=== PATIENT | female | born 1950 | race Caucasian/White ===

== ENCOUNTER → 2016-08-21 | Outpatient (REF) | payer MEDICARE, MEDICAID ==
[~2016-08-21] MED LIST: /ATOR40TA OR; ACTO45TA OR; ALTA10CA OR; ASPI325T PO; ASPI81TA45 OR; ATOR40TA PO; CALC600T7 PO; CARV25TA OR; CARV25TA PO; CIPR500T89 PO; CLAR5CHW OR; DIOV80TA OR; EXFORGE PO; FLEXERIL PO; FURO40TA2 PO; GABA300C3 PO; GLIM1TAB PO; IBUP600T26 PO; INSULANT SC; LANTUS INSULIN SC; LORA10TA2 PO; LORATIDINE PO; LOSA100T37 PO; NORV5TAB OR; OMEP40CA2 PO; PERC5TAB8 OR; PLAV75TA38 PO; PRIL20CA OR; TAB-TAB PO; TRAM50TA2 OR; TRAM50TA2 PO; VICO5TAB OR; VITA50003 PO; VITMTA PO; ZANA4TAB PO; ZOFR8TAB PO
== END ==
LOC: M LAB REF 13:07
PROVIDERS: ATTEND Emergency Medicine
DX: N39.0 Urinary tract infection, site not specified (principal)

== ENCOUNTER → 2016-09-04 | Outpatient (REF) | payer MEDICARE, MEDICAID | LOC: M LAB REF 12:46 | PROVIDERS: ATTEND Emergency Medicine | DX: N39.0 Urinary tract infection, site not specified (principal) ==

== ENCOUNTER → 2016-09-14 | Outpatient (REF) | payer MEDICARE, MEDICAID ==
[~2016-09-14] MED LIST changes: +GABA-282 PO; -GABA300C3 PO
[2016-09-14 15:03] LABS: WBC, URINE TNTC /hpf (0-3)
[2016-09-14 15:04] LABS: BACTERIA, URINE MOD AMOUNT; HYALINE CAST, URINE NONE SEEN /lpf (0-1); SQUAMOUS EPITHELIAL CELL URINE MOD AMOUNT /hpf (SMALL AMT); TRANSITIONAL EPI CELLS, URINE SMALL AMOUNT /hpf
[2016-09-14 15:05] LABS: MICROSCOPIC EXAM PERFORMED
== END ==
LOC: M SMT 14:00
PROVIDERS: ATTEND Specialist
DX: R30.0 Dysuria (principal)
CPT/HCPCS: 81015; 87088; 87186; G0463

== ENCOUNTER → 2016-11-26 | Outpatient (CLI) | payer MEDICARE, MEDICAID ==
[2016-11-26 13:07] LABS: ALBUMIN 3.3 GM/DL (3.2-5.2); ALBUMIN/GLOBULIN RATIO 0.83 (1.00-1.93); ALKALINE PHOSPHATASE 153 U/L (45-117); ALT/SGPT 19 U/L (12-78); ANION GAP 10 MEQ/L (8-16); AST/SGOT 13 U/L (15-37); BILIRUBIN,TOTAL 0.5 MG/DL (0.2-1.0); BLOOD UREA NITROGEN 28 MG/DL (7-18); CALCIUM LEVEL 9.3 MG/DL (8.8-10.2); CARBON DIOXIDE LEVEL 23 MEQ/L (21-32); CHLORIDE LEVEL 99 MEQ/L (98-107); CHOLESTEROL LEVEL 136 MG/DL (<200); CREATININE FOR GFR 1.18 MG/DL (0.55-1.02); GLOMERULAR FILTRATION RATE 48.6 (>45); GLUCOSE, FASTING 174 MG/DL (80-110); POTASSIUM SERUM 4.3 MEQ/L (3.5-5.1); SODIUM LEVEL 132 MEQ/L (136-145); TOTAL PROTEIN 7.3 GM/DL (6.4-8.2); TRIGLYCERIDES LEVEL 77 MG/DL (<150)
[2016-11-26 13:48] LABS: HEP C VIRUS AB SCREEN MEDICARE < 0.0 INDEX (<0.8)
== END ==
LOC: M SMT 07:53
PROVIDERS: ATTEND Emergency Medicine
DX: E11.42 Type 2 diabetes mellitus with diabetic polyneuropathy (principal); I10 Essential (primary) hypertension; E78.2 Mixed hyperlipidemia; E55.9 Vitamin D deficiency, unspecified; Z00.00 Encounter for general adult medical examination without abnormal findings
CPT/HCPCS: 36415; 80053; 80061; 82306; 83036; G0472

== ENCOUNTER 2017-04-18 09:48 | Emergency (ER) | payer MEDICARE, MEDICAID ==
[~2017-04-18] VITALS: Ht 167.6 cm; Wt 133.4 kg
[~2017-04-18 09:48] MED LIST changes: -ATOR40TA PO; +ATOR40TA75 PO; +CIPR-249 PO; -CIPR500T89 PO; +IBUP-1022 PO; -IBUP600T26 PO; -LOSA100T37 PO; +LOSA100T5 PO; +PLAV1TAB2 PO; -PLAV75TA38 PO; +VITA1CAP40 PO; -VITA50003 PO
[2017-04-18] MEDS ORDERED: VITA1CAP40 (10:07)
[2017-04-18] MEDS ORDERED: ASPI81TA85 PO (10:07)
[2017-04-18] MEDS ORDERED: OMEP40CA2 (10:07)
[2017-04-18] MEDS ORDERED: CALC600T6 (10:07)
[2017-04-18] MEDS ORDERED: OXYB5TAB10 (10:07)
[2017-04-18 11:00] LABS: BASO % 0.3 % (0.0-1.0); EOS % 0.4 % (0.0-3.0); IMMATURE GRANULOCYTE % 0.4 % (0-0); LYMPH # 1.1 10^3/uL (1.5-4.5); LYMPH % 9.8 % (24.0-44.0); MEAN CORPUSCULAR HEMOGLOBIN 30.9 pg (27.0-33.0); MEAN CORPUSCULAR VOLUME 90.8 fl (80.0-96.0); MONO # 0.2 10^3/uL (0.0-0.8); NEUTROPHILS # 9.9 10^3/uL (1.8-7.7); NEUTROPHILS % 87.1 % (36.0-66.0); PLATELET COUNT, AUTOMATED 319 10^3/uL (150-450); RED CELL DISTRIBUTION WIDTH 13.2 % (11.5-14.5); WHITE BLOOD COUNT 11.4 10^3/uL (4.0-10.0)
[2017-04-18 11:32] LABS: CALCIUM LEVEL 9.9 MG/DL (8.8-10.2); CREATININE FOR GFR 1.84 MG/DL (0.55-1.02); GLOMERULAR FILTRATION RATE 29.1 (>45); POTASSIUM SERUM 4.8 MEQ/L (3.5-5.1)
[2017-04-18] MEDS ORDERED: NS 500 ML IV ONE (12:00)
[2017-04-18 12:46] VITALS: BP 151/69
== END 2017-04-18 12:47 | disposition home or self-care (01) ==
LOC: EDBD 09:48 → M ED 09:48
DX: N28.9 Disorder of kidney and ureter, unspecified (principal); W06.XXXA Fall from bed, initial encounter; Y92.099 Unspecified place in other non-institutional residence as the place of occurrence of the external cause; Y93.89 Activity, other specified; Y99.9 Unspecified external cause status; I51.9 Heart disease, unspecified; I10 Essential (primary) hypertension; D64.9 Anemia, unspecified; Z87.440 Personal history of urinary (tract) infections; Z79.82 Long term (current) use of aspirin; Z79.4 Long term (current) use of insulin; Z79.899 Other long term (current) drug therapy; Z91.011 Allergy to milk products; Z91.041 Radiographic dye allergy status; Z88.2 Allergy status to sulfonamides

== ENCOUNTER 2018-01-20 23:58 | Inpatient (IN) | payer MEDICARE, MEDICAID ==
[2018-01-21 01:08] LABS: BASO % 0.1 % (0.0-1.0); HEMATOCRIT 32.1 % (36.0-47.0); HEMOGLOBIN 11.2 g/dl (12.0-15.5); IMMATURE GRANULOCYTE % 0.8 % (0-3.0); LYMPH # 0.7 10^3/uL (1.5-4.5); LYMPH % 3.5 % (24.0-44.0); MEAN CORPUSCULAR HEMOGLOBIN 30.9 pg (27.0-33.0); MEAN CORPUSCULAR HGB CONC 34.9 g/dl (32.0-36.5); MEAN CORPUSCULAR VOLUME 88.4 fl (80.0-96.0); MONO % 4.7 % (0.0-5.0); NEUTROPHILS # 18.5 10^3/uL (1.8-7.7); NEUTROPHILS % 90.9 % (36.0-66.0); PLATELET COUNT, AUTOMATED 292 10^3/uL (150-450); RED BLOOD COUNT 3.63 10^6/uL (4.00-5.40); RED CELL DISTRIBUTION WIDTH 12.8 % (11.5-14.5); WHITE BLOOD COUNT 20.4 10^3/uL (4.0-10.0)
[2018-01-21 01:09] LABS: VENOUS BASE EXCESS -4.3 (-2.0-2.0); VENOUS HCO3 22.4 MEQ/L (23.0-27.0); VENOUS O2 SATURATION 83.5 % (60.0-80.0); VENOUS PARTIAL PRESSURE CO2 47.6 mmHg (38.0-50.0); VENOUS STANDARD HCO3 20.6 MEQ/L; VENOUS TOTAL CO2 23.8 MEQ/L (24.0-28.0)
[2018-01-21 01:33] LABS: ANION GAP 15 MEQ/L (8-16); BLOOD UREA NITROGEN 45 MG/DL (7-18); CALCIUM LEVEL 8.8 MG/DL (8.8-10.2); CARBON DIOXIDE LEVEL 21 MEQ/L (21-32); CHLORIDE LEVEL 91 MEQ/L (98-107); CREATININE FOR GFR 2.48 MG/DL (0.55-1.30); GLOMERULAR FILTRATION RATE 20.6 (>45); GLUCOSE, FASTING 180 MG/DL (70-100); POTASSIUM SERUM 4.2 MEQ/L (3.5-5.1); SODIUM LEVEL 127 MEQ/L (136-145)
[2018-01-21 03:16] LABS: ABG BASE EXCESS -3.3 (-2.0-2.0); ABG HCO3 21.4 MEQ/L (22.0-26.0); ABG O2 SATURATION 94.1 % (95.0-99.0); ABG PARTIAL PRESSURE CO2 37.3 mmHg (35.0-45.0); ABG PARTIAL PRESSURE O2 73.1 mmHg (75.0-100.0); ABG STANDARD HCO3 21.7 MEQ/L (22.0-26.0); ABG TOTAL CO2 22.6 MEQ/L (23.0-31.0); ABG pH (ARTERIAL) 7.377 UNITS (7.350-7.450)
[2018-01-21] MEDS: NS 1,000 ML IV (03:45)
[2018-01-21] MEDS ORDERED: metroNIDAZOLE 500 MG in APPROPRIATE DILUENT 1 EA IV (04:00)
[2018-01-21] MEDS ORDERED: CIPROFLOXACIN 200 MG in APPROPRIATE DILUENT 1 EA IV (04:00)
[2018-01-21 04:04] LABS: KETONE, URINE AUTO RFX NEGATIVE (NEGATIVE); LEUKOCYTE ESTERASE UR AUTO RFX 3+ (NEGATIVE); MUCUS, URINE RFX SMALL (NEGATIVE); NITRITE, URINE AUTO RFX NEGATIVE (NEGATIVE); RBC, URINE AUTO RFX 8 /HPF (0-3); SPECIFIC GRAVITY UR AUTO RFX 1.006 (1.002-1.035); SQUAM EPITHELIAL CELL UR AURFX 0 /HPF (0-6); WBC, URINE AUTO RFX TNTC /HPF (0-3)
[2018-01-21 04:40] LABS: BEDSIDE GLUCOSE 201 MG/DL (80-115)
[2018-01-21 05:13] LABS: AMMONIA 19 uMOL/L (<32)
[2018-01-21 05:17] LABS: LACTIC ACID SEPSIS PROTOCOL 1.9 MMOL/L (0.4-2.0)
[2018-01-21] MEDS ORDERED: NS 1,000 ML IV (05:30)
[2018-01-21] MEDS ORDERED: D5W/0.45% SODIUM CHLORIDE 1,000 ML IV (05:32)
[2018-01-21] MEDS ORDERED: METOCLOPRAMIDE INJ 10MG/2ML VIAL (J2765) IV (05:45)
[2018-01-21] MEDS: NS 500 ML IV (05:45)
[2018-01-21] MEDS ORDERED: GLUCAGON FOR INJ 1 MG VIAL (J1610) SC (05:45)
[2018-01-21] MEDS: LEVEMIR (INSULIN DETEMIR) 1 UNITS/0.01ML SC ×2 (05:47→21:09)
[2018-01-21] MEDS ORDERED: HumaLOG INSULIN (NovoLOG) PER UNIT SC ×2 (06:00→07:30)
[2018-01-21] MEDS ORDERED: LevoFLOXacin IV 250 MG in APPROPRIATE DILUENT 1 EA IV (07:15)
[2018-01-21] MEDS: HumaLOG INSULIN (NovoLOG) PER UNIT SC ×4 (07:30→21:09)
[2018-01-21] MEDS ORDERED: cefTRIAXone SOD 1 GM in D5W MINI-BAG PLUS 50 ML IV (08:00)
[2018-01-21 08:39] LABS: BEDSIDE GLUCOSE 266 MG/DL (80-115)
[2018-01-21] MEDS: metroNIDAZOLE 500 MG in APPROPRIATE DILUENT 1 EA IV ×2 (09:05→17:31)
[2018-01-21] MEDS: OMEPRAZOLE 20 MG CAP PO (09:07)
[2018-01-21] MEDS: oxyBUTYnin 5 MG TAB PO ×3 (09:07→21:05)
[2018-01-21] MEDS: MULTIVITAMINS/MINERALS THERAP 1 TAB PO (09:07)
[2018-01-21] MEDS: ASPIRIN 81 MG ENTERIC TAB PO (09:08)
[2018-01-21] MEDS: GABAPENTIN 300 MG CAP PO ×2 (09:08→21:05)
[2018-01-21] MEDS: CALCIUM/VITAMIN D 500 MG TAB PO (09:08)
[2018-01-21] MEDS: HEPARIN SOD (PORCINE) 5000 UNITS/ML VIAL SC ×3 (09:08→21:10)
[2018-01-21] MEDS: LR 1,000 ML IV ×2 (09:09→13:20)
[2018-01-21] MEDS: LevoFLOXacin IV 750 MG in APPROPRIATE DILUENT 1 EA IV (09:10)
[2018-01-21] MEDS: CLOPIDOGREL 75 MG TAB PO (09:10)
[2018-01-21 09:21] LABS: VENOUS BASE EXCESS -6.2 (-2.0-2.0); VENOUS HCO3 20.8 MEQ/L (23.0-27.0); VENOUS O2 SATURATION 87.4 % (60.0-80.0); VENOUS PARTIAL PRESSURE O2 59.5 mmHg (30.0-50.0); VENOUS PH 7.263 UNITS (7.330-7.430); VENOUS STANDARD HCO3 19.2 MEQ/L; VENOUS TOTAL CO2 22.2 MEQ/L (24.0-28.0)
[2018-01-21 09:45] LABS: ANION GAP 14 MEQ/L (8-16); BLOOD UREA NITROGEN 42 MG/DL (7-18); CARBON DIOXIDE LEVEL 20 MEQ/L (21-32); CHLORIDE LEVEL 96 MEQ/L (98-107); CREATININE FOR GFR 2.07 MG/DL (0.55-1.30); GLOMERULAR FILTRATION RATE 25.4 (>45); GLUCOSE, FASTING 242 MG/DL (70-100); POTASSIUM SERUM 3.8 MEQ/L (3.5-5.1); SODIUM LEVEL 130 MEQ/L (136-145); TROPONIN I < 0.02 NG/ML (< 0.10)
[2018-01-21 12:06] LABS: BEDSIDE GLUCOSE 161 MG/DL (80-115)
[2018-01-21 14:31] LABS: ANION GAP 12 MEQ/L (8-16); BLOOD UREA NITROGEN 43 MG/DL (7-18); CALCIUM LEVEL 8.6 MG/DL (8.8-10.2); CARBON DIOXIDE LEVEL 25 MEQ/L (21-32); CHLORIDE LEVEL 93 MEQ/L (98-107); CREATININE FOR GFR 1.98 MG/DL (0.55-1.30); GLOMERULAR FILTRATION RATE 26.7 (>45); GLUCOSE, FASTING 55 MG/DL (70-100); POTASSIUM SERUM 3.5 MEQ/L (3.5-5.1); SODIUM LEVEL 130 MEQ/L (136-145)
[2018-01-21] MEDS: GLUCOSE 4 GM CHEW TABLET PO (15:33)
[2018-01-21 15:38] LABS: BEDSIDE GLUCOSE 26 MG/DL (80-115)
[2018-01-21] MEDS: D5W/0.9% SODIUM CHLORIDE 1,000 ML IV (15:39)
[2018-01-21] MEDS: POTASSIUM CHLORIDE 10 MEQ SR TABLET PO (15:43)
[2018-01-21] MEDS: DEXTROSE 50% 50 ML SYRINGE IV (15:50)
[2018-01-21 16:03] LABS: BEDSIDE GLUCOSE 38 MG/DL (80-115)
[2018-01-21 16:07] LABS: BEDSIDE GLUCOSE 130 MG/DL (80-115)
[2018-01-21 17:30] LABS: BEDSIDE GLUCOSE 112 MG/DL (80-115)
[2018-01-21 19:30] LABS: ANION GAP 10 MEQ/L (8-16); BLOOD UREA NITROGEN 43 MG/DL (7-18); CALCIUM LEVEL 8.5 MG/DL (8.8-10.2); CARBON DIOXIDE LEVEL 25 MEQ/L (21-32); CHLORIDE LEVEL 94 MEQ/L (98-107); CREATININE FOR GFR 1.77 MG/DL (0.55-1.30); GLOMERULAR FILTRATION RATE 30.4 (>45); GLUCOSE, FASTING 119 MG/DL (70-100); POTASSIUM SERUM 4.2 MEQ/L (3.5-5.1); SODIUM LEVEL 129 MEQ/L (136-145)
[2018-01-21] MEDS ORDERED: LEVEMIR (INSULIN DETEMIR) 1 UNITS/0.01ML SC ×2 (21:00)
[2018-01-22] MEDS: metroNIDAZOLE 500 MG in APPROPRIATE DILUENT 1 EA IV (00:41)
[2018-01-22 01:51] LABS: ANION GAP 10 MEQ/L (8-16); BLOOD UREA NITROGEN 41 MG/DL (7-18); CALCIUM LEVEL 8.6 MG/DL (8.8-10.2); CARBON DIOXIDE LEVEL 25 MEQ/L (21-32); CHLORIDE LEVEL 95 MEQ/L (98-107); GLOMERULAR FILTRATION RATE 29.8 (>45); GLUCOSE, FASTING 137 MG/DL (70-100); POTASSIUM SERUM 3.4 MEQ/L (3.5-5.1); SODIUM LEVEL 130 MEQ/L (136-145)
[2018-01-22] MEDS: D5W/0.9% SODIUM CHLORIDE 1,000 ML IV (05:53)
[2018-01-22] MEDS: VANCOMYCIN ORAL SOL 250MG/5ML ORAL SYRINGE PO ×3 (05:53→17:35)
[2018-01-22] MEDS: HEPARIN SOD (PORCINE) 5000 UNITS/ML VIAL SC ×3 (05:53→20:57)
[2018-01-22 06:34] LABS: HEMATOCRIT 27.4 % (36.0-47.0); HEMOGLOBIN 9.4 g/dl (12.0-15.5); MEAN CORPUSCULAR HEMOGLOBIN 30.6 pg (27.0-33.0); MEAN CORPUSCULAR HGB CONC 34.3 g/dl (32.0-36.5); MEAN CORPUSCULAR VOLUME 89.3 fl (80.0-96.0); PLATELET COUNT, AUTOMATED 238 10^3/uL (150-450); RED BLOOD COUNT 3.07 10^6/uL (4.00-5.40); RED CELL DISTRIBUTION WIDTH 12.7 % (11.5-14.5); WHITE BLOOD COUNT 13.9 10^3/uL (4.0-10.0)
[2018-01-22 06:52] LABS: ANION GAP 9 MEQ/L (8-16); BLOOD UREA NITROGEN 38 MG/DL (7-18); CALCIUM LEVEL 8.2 MG/DL (8.8-10.2); CARBON DIOXIDE LEVEL 24 MEQ/L (21-32); CHLORIDE LEVEL 97 MEQ/L (98-107); CREATININE FOR GFR 1.56 MG/DL (0.55-1.30); GLOMERULAR FILTRATION RATE 35.1 (>45); GLUCOSE, FASTING 112 MG/DL (70-100); MAGNESIUM LEVEL 1.6 MG/DL (1.8-2.4); POTASSIUM SERUM 3.5 MEQ/L (3.5-5.1); SODIUM LEVEL 130 MEQ/L (136-145)
[2018-01-22] MEDS: MAG SULF 1GM/100ML (MAG RUN) 1 GM in APPROPRIATE DILUENT 1 EA IV (08:11)
[2018-01-22] MEDS: HumaLOG INSULIN (NovoLOG) PER UNIT SC ×4 (08:12→20:14)
[2018-01-22] MEDS: OMEPRAZOLE 20 MG CAP PO (08:12)
[2018-01-22] MEDS: CALCIUM/VITAMIN D 500 MG TAB PO (08:13)
[2018-01-22] MEDS: MULTIVITAMINS/MINERALS THERAP 1 TAB PO (08:13)
[2018-01-22] MEDS: GABAPENTIN 300 MG CAP PO ×2 (08:13→20:57)
[2018-01-22] MEDS: ASPIRIN 81 MG ENTERIC TAB PO (08:13)
[2018-01-22] MEDS: CLOPIDOGREL 75 MG TAB PO (08:13)
[2018-01-22] MEDS: POTASSIUM CHLORIDE 10 MEQ SR TABLET PO (08:13)
[2018-01-22] MEDS: oxyBUTYnin 5 MG TAB PO ×3 (08:13→20:57)
[2018-01-22 09:14] LABS: ESTIMATED AVERAGE GLUCOSE 197 MG/DL (60-110); HEMOGLOBIN A1c 8.5 %
[2018-01-22 12:20] LABS: BEDSIDE GLUCOSE 132 MG/DL (80-115)
[2018-01-22 12:21] LABS: BEDSIDE GLUCOSE 137 MG/DL (80-115)
[2018-01-22 13:12] LABS: ANION GAP 8 MEQ/L (8-16); BLOOD UREA NITROGEN 33 MG/DL (7-18); CALCIUM LEVEL 8.4 MG/DL (8.8-10.2); CARBON DIOXIDE LEVEL 25 MEQ/L (21-32); CHLORIDE LEVEL 97 MEQ/L (98-107); CREATININE FOR GFR 1.39 MG/DL (0.55-1.30); GLOMERULAR FILTRATION RATE 40.1 (>45); GLUCOSE, FASTING 129 MG/DL (70-100); POTASSIUM SERUM 3.9 MEQ/L (3.5-5.1); SODIUM LEVEL 130 MEQ/L (136-145)
[2018-01-22] MEDS: LACTOBACILLUS ACIDOPHILUS CAP (BACID) PO ×2 (13:18→17:35)
[2018-01-22 19:39] LABS: ANION GAP 7 MEQ/L (8-16); BLOOD UREA NITROGEN 28 MG/DL (7-18); CALCIUM LEVEL 8.5 MG/DL (8.8-10.2); CARBON DIOXIDE LEVEL 25 MEQ/L (21-32); CHLORIDE LEVEL 98 MEQ/L (98-107); CREATININE FOR GFR 1.54 MG/DL (0.55-1.30); GLOMERULAR FILTRATION RATE 35.7 (>45); GLUCOSE, FASTING 198 MG/DL (70-100); POTASSIUM SERUM 3.9 MEQ/L (3.5-5.1); SODIUM LEVEL 130 MEQ/L (136-145)
[2018-01-22] MEDS: LEVEMIR (INSULIN DETEMIR) 1 UNITS/0.01ML SC (20:56)
[2018-01-22] MEDS: traMADol 50 MG TAB PO (20:57)
[2018-01-23] MEDS: VANCOMYCIN ORAL SOL 250MG/5ML ORAL SYRINGE PO ×5 (00:02→23:46)
[2018-01-23] MEDS: HEPARIN SOD (PORCINE) 5000 UNITS/ML VIAL SC ×3 (05:23→20:51)
[2018-01-23 05:55] LABS: HEMATOCRIT 28.8 % (36.0-47.0); HEMOGLOBIN 9.9 g/dl (12.0-15.5); MEAN CORPUSCULAR HEMOGLOBIN 30.6 pg (27.0-33.0); MEAN CORPUSCULAR HGB CONC 34.4 g/dl (32.0-36.5); MEAN CORPUSCULAR VOLUME 88.9 fl (80.0-96.0); PLATELET COUNT, AUTOMATED 255 10^3/uL (150-450); RED BLOOD COUNT 3.24 10^6/uL (4.00-5.40); RED CELL DISTRIBUTION WIDTH 12.7 % (11.5-14.5)
[2018-01-23] MEDS: traMADol 50 MG TAB PO ×2 (06:11→20:57)
[2018-01-23 06:13] LABS: ANION GAP 7 MEQ/L (8-16); BLOOD UREA NITROGEN 22 MG/DL (7-18); CALCIUM LEVEL 8.6 MG/DL (8.8-10.2); CARBON DIOXIDE LEVEL 23 MEQ/L (21-32); CHLORIDE LEVEL 99 MEQ/L (98-107); CREATININE FOR GFR 1.31 MG/DL (0.55-1.30); GLUCOSE, FASTING 165 MG/DL (70-100); MAGNESIUM LEVEL 1.7 MG/DL (1.8-2.4); POTASSIUM SERUM 4.3 MEQ/L (3.5-5.1); SODIUM LEVEL 129 MEQ/L (136-145)
[2018-01-23] MEDS ORDERED: MAG SULF 1GM/100ML (MAG RUN) 1 GM in APPROPRIATE DILUENT 1 EA IV (07:30)
[2018-01-23] MEDS: oxyBUTYnin 5 MG TAB PO ×3 (08:19→20:51)
[2018-01-23] MEDS: ASPIRIN 81 MG ENTERIC TAB PO (08:19)
[2018-01-23] MEDS: CALCIUM/VITAMIN D 500 MG TAB PO (08:19)
[2018-01-23] MEDS: OMEPRAZOLE 20 MG CAP PO (08:19)
[2018-01-23] MEDS: LACTOBACILLUS ACIDOPHILUS CAP (BACID) PO ×3 (08:19→17:34)
[2018-01-23] MEDS: GABAPENTIN 300 MG CAP PO ×2 (08:19→20:51)
[2018-01-23] MEDS: CLOPIDOGREL 75 MG TAB PO (08:19)
[2018-01-23] MEDS: HumaLOG INSULIN (NovoLOG) PER UNIT SC ×4 (08:20→20:52)
[2018-01-23] MEDS: LevoFLOXacin IV 750 MG in APPROPRIATE DILUENT 1 EA IV (09:44)
[2018-01-23] MEDS: MULTIVITAMINS/MINERALS THERAP 1 TAB PO (09:44)
[2018-01-23] MEDS ORDERED: tiZANidine 4 MG TAB PO (16:30)
[2018-01-23] MEDS: LOSARTAN 50 MG TAB PO (17:34)
[2018-01-23] MEDS: LEVEMIR (INSULIN DETEMIR) 1 UNITS/0.01ML SC (20:52)
[2018-01-24] MEDS: HEPARIN SOD (PORCINE) 5000 UNITS/ML VIAL SC (05:07)
[2018-01-24] MEDS: VANCOMYCIN ORAL SOL 250MG/5ML ORAL SYRINGE PO ×2 (05:07→12:05)
[2018-01-24 07:57] LABS: HEMATOCRIT 29.5 % (36.0-47.0); HEMOGLOBIN 10.4 g/dl (12.0-15.5); MEAN CORPUSCULAR HEMOGLOBIN 30.9 pg (27.0-33.0); MEAN CORPUSCULAR HGB CONC 35.3 g/dl (32.0-36.5); MEAN CORPUSCULAR VOLUME 87.5 fl (80.0-96.0); PLATELET COUNT, AUTOMATED 273 10^3/uL (150-450); RED BLOOD COUNT 3.37 10^6/uL (4.00-5.40); RED CELL DISTRIBUTION WIDTH 12.6 % (11.5-14.5)
[2018-01-24 08:19] LABS: ANION GAP 7 MEQ/L (8-16); BLOOD UREA NITROGEN 13 MG/DL (7-18); CALCIUM LEVEL 9.1 MG/DL (8.8-10.2); CARBON DIOXIDE LEVEL 25 MEQ/L (21-32); CHLORIDE LEVEL 99 MEQ/L (98-107); CREATININE FOR GFR 1.07 MG/DL (0.55-1.30); GLOMERULAR FILTRATION RATE 54.3 (>45); GLUCOSE, FASTING 171 MG/DL (70-100); MAGNESIUM LEVEL 1.8 MG/DL (1.8-2.4); POTASSIUM SERUM 4.5 MEQ/L (3.5-5.1); SODIUM LEVEL 131 MEQ/L (136-145)
[2018-01-24] MEDS: OMEPRAZOLE 20 MG CAP PO (08:37)
[2018-01-24] MEDS: MULTIVITAMINS/MINERALS THERAP 1 TAB PO (08:37)
[2018-01-24] MEDS: ASPIRIN 81 MG ENTERIC TAB PO (08:37)
[2018-01-24] MEDS: HumaLOG INSULIN (NovoLOG) PER UNIT SC ×2 (08:37→12:06)
[2018-01-24] MEDS: LACTOBACILLUS ACIDOPHILUS CAP (BACID) PO ×2 (08:37→12:06)
[2018-01-24] MEDS: CALCIUM/VITAMIN D 500 MG TAB PO (08:38)
[2018-01-24] MEDS: LOSARTAN 50 MG TAB PO (08:38)
[2018-01-24] MEDS: GABAPENTIN 300 MG CAP PO (08:38)
[2018-01-24] MEDS: CLOPIDOGREL 75 MG TAB PO (08:38)
[2018-01-24] MEDS: oxyBUTYnin 5 MG TAB PO (08:38)
[2018-01-25 12:11] LABS: BEDSIDE GLUCOSE 210 MG/DL (80-115)
[2018-01-25 12:11] LABS: BEDSIDE GLUCOSE 182 MG/DL (80-115)
[2018-01-25 12:11] LABS: BEDSIDE GLUCOSE 190 MG/DL (80-115)
[2018-01-25 12:11] LABS: BEDSIDE GLUCOSE 157 MG/DL (80-115)
[2018-01-25 12:11] LABS: BEDSIDE GLUCOSE 168 MG/DL (80-115)
[2018-01-25 12:11] LABS: BEDSIDE GLUCOSE 177 MG/DL (80-115)
[2018-01-25 12:11] LABS: BEDSIDE GLUCOSE 212 MG/DL (80-115)
== END 2018-01-24 12:59 | disposition home or self-care (01) | DRG 371 ==
LOC: M ED 23:58 → M ED INP 01-21 05:32 → M MSPAV 01-21 13:05
DX: A04.72 Enterocolitis due to Clostridium difficile, not specified as recurrent (principal); G93.41 Metabolic encephalopathy; K57.92 Diverticulitis of intestine, part unspecified, without perforation or abscess without bleeding; N17.9 Acute kidney failure, unspecified; Z68.42 Body mass index [BMI] 45.0-49.9, adult; N39.0 Urinary tract infection, site not specified; E87.1 Hypo-osmolality and hyponatremia; I13.0 Hypertensive heart and chronic kidney disease with heart failure and stage 1 through stage 4 chronic kidney disease, or unspecified chronic kidney disease; I50.9 Heart failure, unspecified; A04.0 Enteropathogenic Escherichia coli infection; E66.01 Morbid (severe) obesity due to excess calories; N18.9 Chronic kidney disease, unspecified; B96.20 Unspecified Escherichia coli [E. coli] as the cause of diseases classified elsewhere; I25.10 Atherosclerotic heart disease of native coronary artery without angina pectoris; R32 Unspecified urinary incontinence; E11.22 Type 2 diabetes mellitus with diabetic chronic kidney disease; K21.9 Gastro-esophageal reflux disease without esophagitis; M54.9 Dorsalgia, unspecified; Z79.82 Long term (current) use of aspirin; Z79.02 Long term (current) use of antithrombotics/antiplatelets; Z79.4 Long term (current) use of insulin; Z79.899 Other long term (current) drug therapy; Z88.2 Allergy status to sulfonamides; Z91.041 Radiographic dye allergy status; Z91.011 Allergy to milk products

== ENCOUNTER 2018-01-28 14:14 | Inpatient (IN) | payer MEDICARE, MEDICAID ==
[2018-01-28 14:41] LABS: BEDSIDE GLUCOSE 56 MG/DL (80-115)
[2018-01-28 15:27] LABS: BASO # 0.1 10^3/uL (0.0-0.2); BASO % 0.7 % (0.0-1.0); EOS # 0.2 10^3/uL (0.0-0.50); EOS % 3.2 % (0.0-3.0); HEMATOCRIT 32.5 % (36.0-47.0); IMMATURE GRANULOCYTE % 1.7 % (0-3.0); LYMPH # 1.3 10^3/uL (1.5-4.5); LYMPH % 17.9 % (24.0-44.0); MEAN CORPUSCULAR HGB CONC 33.8 g/dl (32.0-36.5); MEAN CORPUSCULAR VOLUME 91.5 fl (80.0-96.0); MONO # 0.7 10^3/uL (0.0-0.8); MONO % 9.5 % (0.0-5.0); NEUTROPHILS # 4.8 10^3/uL (1.8-7.7); PLATELET COUNT, AUTOMATED 321 10^3/uL (150-450); RED BLOOD COUNT 3.55 10^6/uL (4.00-5.40); RED CELL DISTRIBUTION WIDTH 12.9 % (11.5-14.5); WHITE BLOOD COUNT 7.2 10^3/uL (4.0-10.0)
[2018-01-28 15:50] LABS: BEDSIDE GLUCOSE 72 MG/DL (80-115)
[2018-01-28 15:57] LABS: ALBUMIN 3.3 GM/DL (3.2-5.2); ALBUMIN/GLOBULIN RATIO 0.85 (1.00-1.93); ALKALINE PHOSPHATASE 162 U/L (45-117); ALT/SGPT 72 U/L (12-78); ANION GAP 8 MEQ/L (8-16); AST/SGOT 78 U/L (7-37); BILIRUBIN,DIRECT 0.2 MG/DL (0.0-0.2); BILIRUBIN,TOTAL 0.4 MG/DL (0.2-1.0); BLOOD UREA NITROGEN 24 MG/DL (7-18); CALCIUM LEVEL 8.4 MG/DL (8.8-10.2); CARBON DIOXIDE LEVEL 26 MEQ/L (21-32); CHLORIDE LEVEL 94 MEQ/L (98-107); CK-MB VALUE MASS 5.3 NG/ML (<3.6); CPK CREATINE PHOSPHOKINASE 304 U/L (26-192); CREATININE FOR GFR 1.56 MG/DL (0.55-1.30); GLOMERULAR FILTRATION RATE 35.1 (>45); GLUCOSE, FASTING 46 MG/DL (70-100); LIPASE 72 U/L (73-393); MB/CK RELATIVE INDEX 1.74 (< OR =4); SODIUM LEVEL 128 MEQ/L (136-145); TOTAL PROTEIN 7.2 GM/DL (6.4-8.2); TROPONIN I < 0.02 NG/ML (< 0.10)
[2018-01-28 16:55] LABS: KETONE, URINE AUTO RFX NEGATIVE (NEGATIVE); NITRITE, URINE AUTO RFX NEGATIVE (NEGATIVE); RBC, URINE AUTO RFX 2 /HPF (0-3); SPECIFIC GRAVITY UR AUTO RFX 1.004 (1.002-1.035); SQUAM EPITHELIAL CELL UR AURFX 0 /HPF (0-6)
[2018-01-28 17:00] LABS: LEUKOCYTE ESTERASE UR AUTO RFX 2+ (NEGATIVE); WBC, URINE AUTO RFX 39 /HPF (0-3)
[2018-01-28 17:13] LABS: BEDSIDE GLUCOSE 61 MG/DL (80-115)
[2018-01-28] MEDS: D5W/0.45% SODIUM CHLORIDE 1,000 ML IV (17:46)
[2018-01-28 18:19] LABS: BEDSIDE GLUCOSE 60 MG/DL (80-115)
[2018-01-28 20:00] LABS: BEDSIDE GLUCOSE 122 MG/DL (80-115)
[2018-01-28] MEDS ORDERED: GLUCAGON FOR INJ 1 MG VIAL (J1610) SC (20:00)
[2018-01-28] MEDS ORDERED: GLUCOSE 4 GM CHEW TABLET PO (20:00)
[2018-01-28] MEDS ORDERED: DEXTROSE 50% 50 ML SYRINGE IV (20:00)
[2018-01-28] MEDS ORDERED: tiZANidine 4 MG TAB PO (20:00)
[2018-01-28] MEDS: D5W/0.9% SODIUM CHLORIDE 1,000 ML IV (20:25)
[2018-01-28 20:38] LABS: ESTIMATED AVERAGE GLUCOSE 206 MG/DL (60-110); HEMOGLOBIN A1c 8.8 %
[2018-01-28] MEDS: HumaLOG INSULIN (NovoLOG) PER UNIT SC (21:00)
[2018-01-28 21:06] LABS: ANION GAP 9 MEQ/L (8-16); BLOOD UREA NITROGEN 22 MG/DL (7-18); CALCIUM LEVEL 8.4 MG/DL (8.8-10.2); CARBON DIOXIDE LEVEL 27 MEQ/L (21-32); CHLORIDE LEVEL 95 MEQ/L (98-107); CREATININE FOR GFR 1.47 MG/DL (0.55-1.30); GLOMERULAR FILTRATION RATE 37.6 (>45); GLUCOSE, FASTING 97 MG/DL (70-100); POTASSIUM SERUM 4.3 MEQ/L (3.5-5.1); SODIUM LEVEL 131 MEQ/L (136-145)
[2018-01-28 21:11] LABS: CPK CREATINE PHOSPHOKINASE 247 U/L (26-192); MB/CK RELATIVE INDEX 2.02 (< OR =4); TROPONIN I < 0.02 NG/ML (< 0.10)
[2018-01-28 22:04] LABS: BEDSIDE GLUCOSE 92 MG/DL (80-115)
[2018-01-28] MEDS: DOCUSATE SODIUM 100 MG CAP PO (22:52)
[2018-01-28] MEDS: HEPARIN SOD (PORCINE) 5000 UNITS/ML VIAL SC (22:52)
[2018-01-28] MEDS: oxyBUTYnin 5 MG TAB PO (22:53)
[2018-01-28] MEDS: CARVedilol 12.5 MG TAB PO (22:55)
[2018-01-28] MEDS: GABAPENTIN 300 MG CAP PO (22:55)
[2018-01-28] MEDS: VANCOMYCIN ORAL SOL 250MG/5ML ORAL SYRINGE PO (23:39)
[2018-01-28 23:49] LABS: BEDSIDE GLUCOSE 103 MG/DL (80-115)
[2018-01-29 01:07] LABS: BEDSIDE GLUCOSE 83 MG/DL (80-115)
[2018-01-29 01:09] LABS: BEDSIDE GLUCOSE 88 MG/DL (80-115)
[2018-01-29] MEDS: traMADol 50 MG TAB PO ×2 (01:30→22:24)
[2018-01-29 01:54] LABS: BEDSIDE GLUCOSE 79 MG/DL (80-115)
[2018-01-29] MEDS: VANCOMYCIN ORAL SOL 250MG/5ML ORAL SYRINGE PO ×3 (05:16→17:47)
[2018-01-29] MEDS: D5W/0.9% SODIUM CHLORIDE 1,000 ML IV (05:16)
[2018-01-29 05:32] LABS: HEMATOCRIT 27.3 % (36.0-47.0); HEMOGLOBIN 9.4 g/dl (12.0-15.5); MEAN CORPUSCULAR HEMOGLOBIN 30.1 pg (27.0-33.0); MEAN CORPUSCULAR HGB CONC 34.4 g/dl (32.0-36.5); MEAN CORPUSCULAR VOLUME 87.5 fl (80.0-96.0); PLATELET COUNT, AUTOMATED 296 10^3/uL (150-450); RED BLOOD COUNT 3.12 10^6/uL (4.00-5.40); RED CELL DISTRIBUTION WIDTH 12.9 % (11.5-14.5); WHITE BLOOD COUNT 6.9 10^3/uL (4.0-10.0)
[2018-01-29 05:59] LABS: ALBUMIN 2.7 GM/DL (3.2-5.2); ALBUMIN/GLOBULIN RATIO 0.84 (1.00-1.93); ALKALINE PHOSPHATASE 108 U/L (45-117); ALT/SGPT 51 U/L (12-78); ANION GAP 9 MEQ/L (8-16); AST/SGOT 54 U/L (7-37); BILIRUBIN,TOTAL 0.3 MG/DL (0.2-1.0); BLOOD UREA NITROGEN 19 MG/DL (7-18); CALCIUM LEVEL 8.4 MG/DL (8.8-10.2); CARBON DIOXIDE LEVEL 27 MEQ/L (21-32); CHLORIDE LEVEL 98 MEQ/L (98-107); CPK CREATINE PHOSPHOKINASE 179 U/L (26-192); CREATININE FOR GFR 1.17 MG/DL (0.55-1.30); GLUCOSE, FASTING 66 MG/DL (70-100); MAGNESIUM LEVEL 1.6 MG/DL (1.8-2.4); POTASSIUM SERUM 3.9 MEQ/L (3.5-5.1); SODIUM LEVEL 134 MEQ/L (136-145); TOTAL PROTEIN 5.9 GM/DL (6.4-8.2); TROPONIN I < 0.02 NG/ML (< 0.10)
[2018-01-29 06:00] LABS: CK-MB VALUE MASS 2.9 NG/ML (<3.6); MB/CK RELATIVE INDEX 1.62 (< OR =4)
[2018-01-29 06:27] LABS: BEDSIDE GLUCOSE 67 MG/DL (80-115)
[2018-01-29] MEDS: ONDANSETRON 4MG/2ML VIAL (J2405) IV (07:11)
[2018-01-29] MEDS: HumaLOG INSULIN (NovoLOG) PER UNIT SC ×4 (07:30→21:00)
[2018-01-29 07:33] LABS: BEDSIDE GLUCOSE 87 MG/DL (80-115)
[2018-01-29 08:27] LABS: AMPHETAMINES LEVEL URINE NEGATIVE (NEGATIVE); BARBITURATES URINE NEGATIVE (NEGATIVE); BENZODIAZEPINES URINE NEGATIVE (NEGATIVE); CANNABINOIDS URINE NEGATIVE (NEGATIVE); COCAINE METABOLITE URINE NEGATIVE (NEGATIVE); CREATININE,RANDOM URINE 36.5 MG/DL; METHADONE URINE NEGATIVE (NEGATIVE); OPIATES URINE NEGATIVE (NEGATIVE); PHENCYCLIDINE URINE NEGATIVE (NEGATIVE); POTASSIUM RANDOM URINE 20.8 MEQ/L; SODIUM,RANDOM URINE 79 MEQ/L; TOTAL PROTEIN,RANDOM URINE 14.6 MG/DL (0.0-12.0)
[2018-01-29 08:41] LABS: BEDSIDE GLUCOSE 135 MG/DL (80-115)
[2018-01-29] MEDS: ATORVASTATIN 20 MG TAB PO (08:41)
[2018-01-29] MEDS: oxyBUTYnin 5 MG TAB PO ×3 (08:41→22:14)
[2018-01-29] MEDS: LACTOBACILLUS ACIDOPHILUS CAP (BACID) PO ×3 (08:42→17:30)
[2018-01-29] MEDS: FUROSEMIDE 40 MG TAB PO (08:42)
[2018-01-29] MEDS: LORATADINE 10 MG TAB PO (08:42)
[2018-01-29] MEDS: CLOPIDOGREL 75 MG TAB PO (08:42)
[2018-01-29] MEDS: GABAPENTIN 300 MG CAP PO ×2 (08:42→22:14)
[2018-01-29] MEDS: OMEPRAZOLE 20 MG CAP PO (08:42)
[2018-01-29] MEDS: CARVedilol 12.5 MG TAB PO ×2 (08:43→22:15)
[2018-01-29] MEDS: ASPIRIN 81 MG ENTERIC TAB PO (08:44)
[2018-01-29] MEDS: MULTIVITAMINS/MINERALS THERAP 1 TAB PO (08:44)
[2018-01-29] MEDS: MAGNESIUM OXIDE 400 MG TAB (MAG-OX) PO ×2 (08:44→22:14)
[2018-01-29] MEDS: HEPARIN SOD (PORCINE) 5000 UNITS/ML VIAL SC ×2 (08:45→22:24)
[2018-01-29] MEDS: DOCUSATE SODIUM 100 MG CAP PO ×2 (08:48→22:14)
[2018-01-29 09:42] LABS: OSMOLALITY URINE 293 MOSM/KG (500-800)
[2018-01-29 12:08] LABS: BEDSIDE GLUCOSE 142 MG/DL (80-115)
[2018-01-29 17:05] LABS: BEDSIDE GLUCOSE 168 MG/DL (80-115)
[2018-01-29 20:36] LABS: BEDSIDE GLUCOSE 164 MG/DL (80-115)
[2018-01-30] MEDS: VANCOMYCIN ORAL SOL 250MG/5ML ORAL SYRINGE PO ×5 (00:07→23:14)
[2018-01-30 06:14] LABS: HEMATOCRIT 27.3 % (36.0-47.0); HEMOGLOBIN 9.4 g/dl (12.0-15.5); MEAN CORPUSCULAR HEMOGLOBIN 30.9 pg (27.0-33.0); MEAN CORPUSCULAR HGB CONC 34.4 g/dl (32.0-36.5); MEAN CORPUSCULAR VOLUME 89.8 fl (80.0-96.0); PLATELET COUNT, AUTOMATED 285 10^3/uL (150-450); RED BLOOD COUNT 3.04 10^6/uL (4.00-5.40); RED CELL DISTRIBUTION WIDTH 13.1 % (11.5-14.5); WHITE BLOOD COUNT 5.3 10^3/uL (4.0-10.0)
[2018-01-30 06:32] LABS: ALBUMIN 2.6 GM/DL (3.2-5.2); ALBUMIN/GLOBULIN RATIO 0.68 (1.00-1.93); ALKALINE PHOSPHATASE 115 U/L (45-117); ALT/SGPT 42 U/L (12-78); ANION GAP 5 MEQ/L (8-16); AST/SGOT 41 U/L (7-37); BILIRUBIN,TOTAL 0.4 MG/DL (0.2-1.0); BLOOD UREA NITROGEN 16 MG/DL (7-18); CALCIUM LEVEL 8.4 MG/DL (8.8-10.2); CARBON DIOXIDE LEVEL 29 MEQ/L (21-32); CHLORIDE LEVEL 97 MEQ/L (98-107); GLOMERULAR FILTRATION RATE 52.6 (>45); GLUCOSE, FASTING 145 MG/DL (70-100); MAGNESIUM LEVEL 1.7 MG/DL (1.8-2.4); POTASSIUM SERUM 4.1 MEQ/L (3.5-5.1); SODIUM LEVEL 131 MEQ/L (136-145); TOTAL PROTEIN 6.4 GM/DL (6.4-8.2)
[2018-01-30] MEDS: DOCUSATE SODIUM 100 MG CAP PO ×2 (09:00→22:03)
[2018-01-30] MEDS: ASPIRIN 81 MG ENTERIC TAB PO (09:27)
[2018-01-30] MEDS: GABAPENTIN 300 MG CAP PO ×2 (09:27→22:03)
[2018-01-30] MEDS: oxyBUTYnin 5 MG TAB PO ×3 (09:27→22:03)
[2018-01-30] MEDS: LORATADINE 10 MG TAB PO (09:27)
[2018-01-30] MEDS: FUROSEMIDE 40 MG TAB PO (09:27)
[2018-01-30] MEDS: MULTIVITAMINS/MINERALS THERAP 1 TAB PO (09:27)
[2018-01-30] MEDS: MAGNESIUM OXIDE 400 MG TAB (MAG-OX) PO ×2 (09:28→22:03)
[2018-01-30] MEDS: LACTOBACILLUS ACIDOPHILUS CAP (BACID) PO ×3 (09:28→17:02)
[2018-01-30] MEDS: OMEPRAZOLE 20 MG CAP PO (09:28)
[2018-01-30] MEDS: CARVedilol 12.5 MG TAB PO ×2 (09:29→22:04)
[2018-01-30] MEDS: CLOPIDOGREL 75 MG TAB PO (09:29)
[2018-01-30] MEDS: HumaLOG INSULIN (NovoLOG) PER UNIT SC ×4 (09:29→21:00)
[2018-01-30] MEDS: ATORVASTATIN 20 MG TAB PO (09:29)
[2018-01-30] MEDS: HEPARIN SOD (PORCINE) 5000 UNITS/ML VIAL SC ×2 (09:30→22:03)
[2018-01-30 11:42] LABS: BEDSIDE GLUCOSE 177 MG/DL (80-115)
[2018-01-30 16:29] LABS: BEDSIDE GLUCOSE 181 MG/DL (80-115)
[2018-01-30 21:11] LABS: BEDSIDE GLUCOSE 204 MG/DL (80-115)
[2018-01-30] MEDS: traMADol 50 MG TAB PO (22:05)
[2018-01-31] MEDS: traMADol 50 MG TAB PO (04:31)
[2018-01-31] MEDS: VANCOMYCIN ORAL SOL 250MG/5ML ORAL SYRINGE PO (05:04)
[2018-01-31 05:49] LABS: HEMATOCRIT 27.9 % (36.0-47.0); HEMOGLOBIN 9.6 g/dl (12.0-15.5); MEAN CORPUSCULAR HEMOGLOBIN 30.6 pg (27.0-33.0); MEAN CORPUSCULAR HGB CONC 34.4 g/dl (32.0-36.5); MEAN CORPUSCULAR VOLUME 88.9 fl (80.0-96.0); PLATELET COUNT, AUTOMATED 288 10^3/uL (150-450); RED BLOOD COUNT 3.14 10^6/uL (4.00-5.40); RED CELL DISTRIBUTION WIDTH 13.1 % (11.5-14.5); WHITE BLOOD COUNT 5.4 10^3/uL (4.0-10.0)
[2018-01-31 06:10] LABS: ALBUMIN 2.7 GM/DL (3.2-5.2); ALBUMIN/GLOBULIN RATIO 0.71 (1.00-1.93); ALKALINE PHOSPHATASE 121 U/L (45-117); ALT/SGPT 38 U/L (12-78); ANION GAP 9 MEQ/L (8-16); AST/SGOT 33 U/L (7-37); BILIRUBIN,TOTAL 0.5 MG/DL (0.2-1.0); BLOOD UREA NITROGEN 15 MG/DL (7-18); CALCIUM LEVEL 8.6 MG/DL (8.8-10.2); CARBON DIOXIDE LEVEL 26 MEQ/L (21-32); CHLORIDE LEVEL 92 MEQ/L (98-107); CREATININE FOR GFR 0.95 MG/DL (0.55-1.30); GLOMERULAR FILTRATION RATE > 60.0 (>45); GLUCOSE, FASTING 189 MG/DL (70-100); MAGNESIUM LEVEL 1.7 MG/DL (1.8-2.4); SODIUM LEVEL 127 MEQ/L (136-145); TOTAL PROTEIN 6.5 GM/DL (6.4-8.2)
[2018-01-31] MEDS: ACETAMINOPHEN TAB 650MG DOSE (2X325MG) PO (07:43)
[2018-01-31] MEDS: LACTOBACILLUS ACIDOPHILUS CAP (BACID) PO (07:44)
[2018-01-31] MEDS: oxyBUTYnin 5 MG TAB PO (07:44)
[2018-01-31] MEDS: ATORVASTATIN 20 MG TAB PO (07:44)
[2018-01-31] MEDS: GABAPENTIN 300 MG CAP PO (07:44)
[2018-01-31] MEDS: LORATADINE 10 MG TAB PO (07:45)
[2018-01-31] MEDS: CARVedilol 12.5 MG TAB PO (07:45)
[2018-01-31] MEDS: ASPIRIN 81 MG ENTERIC TAB PO (07:45)
[2018-01-31] MEDS: FUROSEMIDE 40 MG TAB PO (07:46)
[2018-01-31] MEDS: OMEPRAZOLE 20 MG CAP PO (07:46)
[2018-01-31] MEDS: MULTIVITAMINS/MINERALS THERAP 1 TAB PO (07:46)
[2018-01-31] MEDS: CLOPIDOGREL 75 MG TAB PO (07:46)
[2018-01-31] MEDS: HEPARIN SOD (PORCINE) 5000 UNITS/ML VIAL SC (07:47)
[2018-01-31] MEDS: HumaLOG INSULIN (NovoLOG) PER UNIT SC (07:47)
[2018-01-31] MEDS: DOCUSATE SODIUM 100 MG CAP PO (07:48)
== END 2018-01-31 12:05 | disposition home health service (06) | DRG 918 ==
LOC: M MSPAV 01-29 16:10 → M ED 14:14 → M ED INP 19:48 → M ICU 21:55
PROVIDERS: Hospitalist
DX: T38.3X1A Poisoning by insulin and oral hypoglycemic [antidiabetic] drugs, accidental (unintentional), initial encounter (principal); E87.1 Hypo-osmolality and hyponatremia; Z68.43 Body mass index [BMI] 50.0-59.9, adult; I50.22 Chronic systolic (congestive) heart failure; E66.01 Morbid (severe) obesity due to excess calories; E11.649 Type 2 diabetes mellitus with hypoglycemia without coma; I25.10 Atherosclerotic heart disease of native coronary artery without angina pectoris; K21.9 Gastro-esophageal reflux disease without esophagitis; M54.5 Low back pain; Z79.4 Long term (current) use of insulin; Z79.899 Other long term (current) drug therapy; Z79.82 Long term (current) use of aspirin; Z88.2 Allergy status to sulfonamides; Z91.041 Radiographic dye allergy status; Z91.011 Allergy to milk products; G62.9 Polyneuropathy, unspecified

== ENCOUNTER 2018-02-26 14:20 | Inpatient (IN) | payer MEDICARE, MEDICAID ==
[2018-02-26 17:34] LABS: HEMATOCRIT 34.5 % (36.0-47.0); HEMOGLOBIN 11.9 g/dl (12.0-15.5); MEAN CORPUSCULAR HGB CONC 34.5 g/dl (32.0-36.5); MEAN CORPUSCULAR VOLUME 89.8 fl (80.0-96.0); PLATELET COUNT, AUTOMATED 274 10^3/uL (150-450); RED BLOOD COUNT 3.84 10^6/uL (4.00-5.40); RED CELL DISTRIBUTION WIDTH 13.1 % (11.5-14.5); WHITE BLOOD COUNT 11.7 10^3/uL (4.0-10.0)
[2018-02-26 17:35] LABS: BEDSIDE GLUCOSE 407 MG/DL (80-115)
[2018-02-26 17:55] LABS: ANION GAP 11 MEQ/L (8-16); BLOOD UREA NITROGEN 14 MG/DL (7-18); CALCIUM LEVEL 9.3 MG/DL (8.8-10.2); CARBON DIOXIDE LEVEL 25 MEQ/L (21-32); CHLORIDE LEVEL 101 MEQ/L (98-107); CK-MB VALUE MASS 4.6 NG/ML (<3.6); CPK CREATINE PHOSPHOKINASE 272 U/L (26-192); GLOMERULAR FILTRATION RATE 52.6 (>45); GLUCOSE, FASTING 391 MG/DL (70-100); MB/CK RELATIVE INDEX 1.69 (< OR =4); POTASSIUM SERUM 4.3 MEQ/L (3.5-5.1); SODIUM LEVEL 137 MEQ/L (136-145); TROPONIN I 0.03 NG/ML (< 0.10)
[2018-02-26 18:35] LABS: ABG BASE EXCESS -1.6 (-2.0-2.0); ABG HCO3 21.6 MEQ/L (22.0-26.0); ABG O2 SATURATION 95.2 % (95.0-99.0); ABG PARTIAL PRESSURE CO2 31.9 mmHg (35.0-45.0); ABG PARTIAL PRESSURE O2 75.2 mmHg (75.0-100.0); ABG STANDARD HCO3 23.1 MEQ/L (22.0-26.0); ABG TOTAL CO2 22.6 MEQ/L (23.0-31.0); ABG pH (ARTERIAL) 7.449 UNITS (7.350-7.450)
[2018-02-26] MEDS: LOSARTAN 50 MG TAB PO (18:57)
[2018-02-26] MEDS: CARVedilol 12.5 MG TAB PO (18:57)
[2018-02-26] MEDS: NS 1,000 ML IV (18:57)
[2018-02-26] MEDS ORDERED: LABETALOL HCL 100 MG/20 ML VIAL IV (19:07)
[2018-02-26] MEDS ORDERED: tiZANidine 4 MG TAB PO (20:30)
[2018-02-26] MEDS ORDERED: traMADol 50 MG TAB PO (20:30)
[2018-02-26] MEDS ORDERED: GABAPENTIN 300 MG CAP PO (21:00)
[2018-02-26] MEDS ORDERED: GLUCAGON FOR INJ 1 MG VIAL (J1610) SC (21:30)
[2018-02-26] MEDS ORDERED: DEXTROSE 50% 50 ML SYRINGE IV (21:30)
[2018-02-26] MEDS ORDERED: GLUCOSE 4 GM CHEW TABLET PO (21:30)
[2018-02-26] MEDS ORDERED: ONDANSETRON 4MG/2ML VIAL (J2405) IV (21:30)
[2018-02-26] MEDS ORDERED: ONDANSETRON 4 MG TAB (S0181) PO (21:30)
[2018-02-27 00:24] LABS: BEDSIDE GLUCOSE 381 MG/DL (80-115)
[2018-02-27] MEDS: NS 1,000 ML IV ×2 (00:40→11:08)
[2018-02-27] MEDS: LEVEMIR (INSULIN DETEMIR) 1 UNITS/0.01ML SC ×2 (00:41→21:02)
[2018-02-27] MEDS: HumaLOG INSULIN (NovoLOG) PER UNIT SC ×5 (00:41→21:02)
[2018-02-27] MEDS: CARVedilol 12.5 MG TAB PO ×3 (00:42→21:01)
[2018-02-27] MEDS: oxyBUTYnin 5 MG TAB PO ×4 (00:42→21:00)
[2018-02-27 01:05] LABS: AMMONIA 16 uMOL/L (<32)
[2018-02-27 01:20] LABS: CPK CREATINE PHOSPHOKINASE 207 U/L (26-192); TROPONIN I 0.03 NG/ML (< 0.10)
[2018-02-27 01:21] LABS: CK-MB VALUE MASS 3.4 NG/ML (<3.6); MB/CK RELATIVE INDEX 1.64 (< OR =4)
[2018-02-27] MEDS: LACTOBACILLUS RHAMNOSUS POWDER PACKET(CULTURELLE) PO ×3 (01:31→21:01)
[2018-02-27] MEDS ORDERED: SODIUM CHLORIDE 0.9% INJ 10 ML SYR IV (06:30)
[2018-02-27] MEDS: SODIUM CHLORIDE 0.9% INJ 10 ML SYR IV ×2 (06:50→21:02)
[2018-02-27 07:11] LABS: BASO % 0.3 % (0.0-1.0); EOS # 0.1 10^3/uL (0.0-0.50); EOS % 0.9 % (0.0-3.0); HEMATOCRIT 30.4 % (36.0-47.0); HEMOGLOBIN 10.5 g/dl (12.0-15.5); IMMATURE GRANULOCYTE % 0.5 % (0-3.0); LYMPH # 1.5 10^3/uL (1.5-4.5); LYMPH % 15.4 % (24.0-44.0); MEAN CORPUSCULAR HEMOGLOBIN 31.4 pg (27.0-33.0); MEAN CORPUSCULAR HGB CONC 34.5 g/dl (32.0-36.5); MONO # 0.9 10^3/uL (0.0-0.8); MONO % 8.7 % (0.0-5.0); NEUTROPHILS # 7.3 10^3/uL (1.8-7.7); NEUTROPHILS % 74.2 % (36.0-66.0); PLATELET COUNT, AUTOMATED 244 10^3/uL (150-450); RED BLOOD COUNT 3.34 10^6/uL (4.00-5.40); RED CELL DISTRIBUTION WIDTH 13.2 % (11.5-14.5); WHITE BLOOD COUNT 9.8 10^3/uL (4.0-10.0)
[2018-02-27 07:28] LABS: ANION GAP 8 MEQ/L (8-16); BLOOD UREA NITROGEN 16 MG/DL (7-18); CALCIUM LEVEL 8.4 MG/DL (8.8-10.2); CARBON DIOXIDE LEVEL 26 MEQ/L (21-32); CHLORIDE LEVEL 106 MEQ/L (98-107); CPK CREATINE PHOSPHOKINASE 151 U/L (26-192); CREATININE FOR GFR 1.11 MG/DL (0.55-1.30); GLUCOSE, FASTING 278 MG/DL (70-100); MAGNESIUM LEVEL 1.8 MG/DL (1.8-2.4); POTASSIUM SERUM 3.8 MEQ/L (3.5-5.1); SODIUM LEVEL 140 MEQ/L (136-145)
[2018-02-27] MEDS: LORATADINE 10 MG TAB PO (08:06)
[2018-02-27] MEDS: CLOPIDOGREL 75 MG TAB PO (08:06)
[2018-02-27] MEDS: ATORVASTATIN 20 MG TAB PO (08:06)
[2018-02-27] MEDS: ENOXAPARIN 40 MG/0.4 ML SYRINGE (J1650) SC (08:07)
[2018-02-27] MEDS: MULTIVITAMINS/MINERALS THERAP 1 TAB PO (08:07)
[2018-02-27] MEDS: ASPIRIN 81 MG ENTERIC TAB PO (08:07)
[2018-02-27] MEDS: LOSARTAN 50 MG TAB PO (08:07)
[2018-02-27] MEDS: OMEPRAZOLE 20 MG CAP PO (08:07)
[2018-02-27 10:22] LABS: FREE T4 1.61 NG/DL (0.76-1.46); THYROID STIMULATING HORMONE 0.616 uIU/ML (0.358-3.740)
[2018-02-27 11:57] LABS: BEDSIDE GLUCOSE 213 MG/DL (80-115)
[2018-02-27 12:24] LABS: APPEARANCE, URINE TURBID (CLEAR); BACTERIA, URINE AUTO 1+ (NEGATIVE); BILIRUBIN, URINE AUTO NEGATIVE (NEGATIVE); BLOOD, URINE BLOOD 1+ (NEGATIVE); COLOR, URINE YELLOW (YELLOW); GLUCOSE, URINE (UA) AUTO 3+ mg/dL (NEGATIVE); KETONE, URINE AUTO TRACE mg/dL (NEGATIVE); LEUKOCYTE ESTERASE, URINE AUTO 3+ (NEGATIVE); NITRITE, URINE AUTO NEGATIVE (NEGATIVE); PROTEIN, URINE AUTO 2+ mg/dL (NEGATIVE); RBC, URINE AUTO TNTC /HPF (0-3); SPECIFIC GRAVITY URINE AUTO 1.015 (1.002-1.035); SQUAMOUS EPITHELIAL CELL UR AU 0 /HPF (0-6); UROBILINOGEN, URINE AUTO 0.2 mg/dL (0.0-2.0); WBC, URINE AUTO TNTC /HPF (0-3); YEAST LIKE CELL URINE AUTO LARGE
[2018-02-27 13:41] LABS: CK-MB VALUE MASS 2.1 NG/ML (<3.6); CPK CREATINE PHOSPHOKINASE 143 U/L (26-192); MB/CK RELATIVE INDEX 1.46 (< OR =4); TROPONIN I 0.03 NG/ML (< 0.10)
[2018-02-27 16:39] LABS: CK-MB VALUE MASS 1.9 NG/ML (<3.6); CPK CREATINE PHOSPHOKINASE 135 U/L (26-192); TROPONIN I 0.03 NG/ML (< 0.10)
[2018-02-27 16:48] LABS: BEDSIDE GLUCOSE 194 MG/DL (80-115)
[2018-02-27] MEDS: cefTRIAXone SOD 1 GM in D5W MINI-BAG PLUS 50 ML IV (18:24)
[2018-02-27 21:23] LABS: BEDSIDE GLUCOSE 217 MG/DL (80-115)
[2018-02-28] MEDS: NS 1,000 ML IV ×2 (00:08→13:28)
[2018-02-28] MEDS: SODIUM CHLORIDE 0.9% INJ 10 ML SYR IV ×3 (04:52→22:04)
[2018-02-28 05:23] LABS: BASO % 0.2 % (0.0-1.0); EOS # 0.1 10^3/uL (0.0-0.50); EOS % 1.5 % (0.0-3.0); HEMATOCRIT 31.2 % (36.0-47.0); HEMOGLOBIN 10.4 g/dl (12.0-15.5); IMMATURE GRANULOCYTE % 0.6 % (0-3.0); LYMPH # 1.3 10^3/uL (1.5-4.5); LYMPH % 14.1 % (24.0-44.0); MEAN CORPUSCULAR HEMOGLOBIN 30.8 pg (27.0-33.0); MEAN CORPUSCULAR HGB CONC 33.3 g/dl (32.0-36.5); MEAN CORPUSCULAR VOLUME 92.3 fl (80.0-96.0); MONO # 0.8 10^3/uL (0.0-0.8); MONO % 8.8 % (0.0-5.0); NEUTROPHILS # 6.7 10^3/uL (1.8-7.7); NEUTROPHILS % 74.8 % (36.0-66.0); PLATELET COUNT, AUTOMATED 206 10^3/uL (150-450); RED BLOOD COUNT 3.38 10^6/uL (4.00-5.40); RED CELL DISTRIBUTION WIDTH 13.2 % (11.5-14.5); WHITE BLOOD COUNT 8.9 10^3/uL (4.0-10.0)
[2018-02-28 05:45] LABS: ANION GAP 8 MEQ/L (8-16); BLOOD UREA NITROGEN 16 MG/DL (7-18); CALCIUM LEVEL 8.5 MG/DL (8.8-10.2); CARBON DIOXIDE LEVEL 25 MEQ/L (21-32); CHLORIDE LEVEL 106 MEQ/L (98-107); CPK CREATINE PHOSPHOKINASE 96 U/L (26-192); CREATININE FOR GFR 1.22 MG/DL (0.55-1.30); GLOMERULAR FILTRATION RATE 46.7 (>45); GLUCOSE, FASTING 220 MG/DL (70-100); MAGNESIUM LEVEL 1.6 MG/DL (1.8-2.4); POTASSIUM SERUM 3.7 MEQ/L (3.5-5.1); SODIUM LEVEL 139 MEQ/L (136-145)
[2018-02-28] MEDS: CLOPIDOGREL 75 MG TAB PO (09:01)
[2018-02-28] MEDS: LORATADINE 10 MG TAB PO (09:01)
[2018-02-28] MEDS: oxyBUTYnin 5 MG TAB PO ×3 (09:01→21:50)
[2018-02-28] MEDS: ASPIRIN 81 MG ENTERIC TAB PO (09:02)
[2018-02-28] MEDS: OMEPRAZOLE 20 MG CAP PO (09:02)
[2018-02-28] MEDS: ATORVASTATIN 20 MG TAB PO (09:02)
[2018-02-28] MEDS: MULTIVITAMINS/MINERALS THERAP 1 TAB PO (09:02)
[2018-02-28] MEDS: ENOXAPARIN 40 MG/0.4 ML SYRINGE (J1650) SC (09:02)
[2018-02-28] MEDS: HumaLOG INSULIN (NovoLOG) PER UNIT SC ×4 (09:03→21:51)
[2018-02-28] MEDS: LACTOBACILLUS RHAMNOSUS POWDER PACKET(CULTURELLE) PO ×2 (09:03→21:49)
[2018-02-28] MEDS: MAG SULF 1GM/100ML (MAG RUN) 1 GM in APPROPRIATE DILUENT 1 EA IV (09:03)
[2018-02-28] MEDS: CARVedilol 12.5 MG TAB PO ×2 (09:04→21:50)
[2018-02-28] MEDS: LOSARTAN 50 MG TAB PO (09:04)
[2018-02-28 11:47] LABS: BEDSIDE GLUCOSE 312 MG/DL (80-115)
[2018-02-28 17:24] LABS: BEDSIDE GLUCOSE 226 MG/DL (80-115)
[2018-02-28] MEDS: cefTRIAXone SOD 1 GM in D5W MINI-BAG PLUS 50 ML IV (17:34)
[2018-02-28] MEDS: LEVEMIR (INSULIN DETEMIR) 1 UNITS/0.01ML SC ×2 (17:35→21:51)
[2018-02-28 21:36] LABS: BEDSIDE GLUCOSE 319 MG/DL (80-115)
[2018-03-01] MEDS: SODIUM CHLORIDE 0.9% INJ 10 ML SYR IV ×3 (05:17→21:54)
[2018-03-01 05:36] LABS: BASO % 0.3 % (0.0-1.0); EOS # 0.2 10^3/uL (0.0-0.50); EOS % 2.2 % (0.0-3.0); HEMATOCRIT 28.7 % (36.0-47.0); HEMOGLOBIN 9.9 g/dl (12.0-15.5); IMMATURE GRANULOCYTE % 0.5 % (0-3.0); LYMPH # 1.5 10^3/uL (1.5-4.5); LYMPH % 19.1 % (24.0-44.0); MEAN CORPUSCULAR HEMOGLOBIN 30.9 pg (27.0-33.0); MEAN CORPUSCULAR HGB CONC 34.5 g/dl (32.0-36.5); MEAN CORPUSCULAR VOLUME 89.7 fl (80.0-96.0); MONO # 0.7 10^3/uL (0.0-0.8); MONO % 8.4 % (0.0-5.0); NEUTROPHILS # 5.4 10^3/uL (1.8-7.7); NEUTROPHILS % 69.5 % (36.0-66.0); PLATELET COUNT, AUTOMATED 216 10^3/uL (150-450); RED CELL DISTRIBUTION WIDTH 12.8 % (11.5-14.5); WHITE BLOOD COUNT 7.7 10^3/uL (4.0-10.0)
[2018-03-01 05:59] LABS: ANION GAP 9 MEQ/L (8-16); BLOOD UREA NITROGEN 13 MG/DL (7-18); CALCIUM LEVEL 8.5 MG/DL (8.8-10.2); CARBON DIOXIDE LEVEL 24 MEQ/L (21-32); CHLORIDE LEVEL 106 MEQ/L (98-107); CPK CREATINE PHOSPHOKINASE 79 U/L (26-192); CREATININE FOR GFR 1.18 MG/DL (0.55-1.30); GLOMERULAR FILTRATION RATE 48.5 (>45); GLUCOSE, FASTING 200 MG/DL (70-100); MAGNESIUM LEVEL 1.8 MG/DL (1.8-2.4); POTASSIUM SERUM 3.6 MEQ/L (3.5-5.1); SODIUM LEVEL 139 MEQ/L (136-145)
[2018-03-01] MEDS: HumaLOG INSULIN (NovoLOG) PER UNIT SC ×4 (08:10→20:31)
[2018-03-01] MEDS: ENOXAPARIN 40 MG/0.4 ML SYRINGE (J1650) SC (08:10)
[2018-03-01] MEDS: LOSARTAN 50 MG TAB PO (08:11)
[2018-03-01] MEDS: OMEPRAZOLE 20 MG CAP PO (08:11)
[2018-03-01] MEDS: LACTOBACILLUS RHAMNOSUS POWDER PACKET(CULTURELLE) PO ×2 (08:12→21:50)
[2018-03-01] MEDS: CLOPIDOGREL 75 MG TAB PO (08:12)
[2018-03-01] MEDS: CARVedilol 12.5 MG TAB PO ×2 (08:12→21:53)
[2018-03-01] MEDS: ATORVASTATIN 20 MG TAB PO (08:12)
[2018-03-01] MEDS: ASPIRIN 81 MG ENTERIC TAB PO (08:12)
[2018-03-01] MEDS: MULTIVITAMINS/MINERALS THERAP 1 TAB PO (08:12)
[2018-03-01] MEDS: LORATADINE 10 MG TAB PO (08:12)
[2018-03-01] MEDS: oxyBUTYnin 5 MG TAB PO ×3 (08:12→21:50)
[2018-03-01 11:50] LABS: BEDSIDE GLUCOSE 212 MG/DL (80-115)
[2018-03-01 16:46] LABS: BEDSIDE GLUCOSE 201 MG/DL (80-115)
[2018-03-01] MEDS: cefTRIAXone SOD 1 GM in D5W MINI-BAG PLUS 50 ML IV (17:16)
[2018-03-01 20:40] LABS: BEDSIDE GLUCOSE 222 MG/DL (80-115)
[2018-03-01] MEDS: LEVEMIR (INSULIN DETEMIR) 1 UNITS/0.01ML SC (21:00)
[2018-03-02] MEDS: SODIUM CHLORIDE 0.9% INJ 10 ML SYR IV ×3 (05:02→22:00)
[2018-03-02 05:31] LABS: BASO % 0.3 % (0.0-1.0); EOS # 0.2 10^3/uL (0.0-0.50); EOS % 3.9 % (0.0-3.0); HEMOGLOBIN 10.3 g/dl (12.0-15.5); IMMATURE GRANULOCYTE % 0.5 % (0-3.0); LYMPH # 1.3 10^3/uL (1.5-4.5); LYMPH % 21.4 % (24.0-44.0); MEAN CORPUSCULAR HEMOGLOBIN 30.7 pg (27.0-33.0); MEAN CORPUSCULAR HGB CONC 34.3 g/dl (32.0-36.5); MEAN CORPUSCULAR VOLUME 89.3 fl (80.0-96.0); MONO # 0.5 10^3/uL (0.0-0.8); MONO % 8.9 % (0.0-5.0); NEUTROPHILS # 3.9 10^3/uL (1.8-7.7); PLATELET COUNT, AUTOMATED 243 10^3/uL (150-450); RED BLOOD COUNT 3.36 10^6/uL (4.00-5.40); RED CELL DISTRIBUTION WIDTH 12.8 % (11.5-14.5); WHITE BLOOD COUNT 5.9 10^3/uL (4.0-10.0)
[2018-03-02 05:49] LABS: ANION GAP 10 MEQ/L (8-16); BLOOD UREA NITROGEN 8 MG/DL (7-18); CALCIUM LEVEL 8.5 MG/DL (8.8-10.2); CARBON DIOXIDE LEVEL 24 MEQ/L (21-32); CHLORIDE LEVEL 105 MEQ/L (98-107); CPK CREATINE PHOSPHOKINASE 80 U/L (26-192); CREATININE FOR GFR 0.97 MG/DL (0.55-1.30); GLOMERULAR FILTRATION RATE > 60.0 (>45); GLUCOSE, FASTING 198 MG/DL (70-100); MAGNESIUM LEVEL 1.7 MG/DL (1.8-2.4); POTASSIUM SERUM 3.8 MEQ/L (3.5-5.1); SODIUM LEVEL 139 MEQ/L (136-145)
[2018-03-02] MEDS: LACTOBACILLUS RHAMNOSUS POWDER PACKET(CULTURELLE) PO ×2 (09:00→21:00)
[2018-03-02] MEDS: MAG SULF 1GM/100ML (MAG RUN) 1 GM in APPROPRIATE DILUENT 1 EA IV (09:21)
[2018-03-02] MEDS: HumaLOG INSULIN (NovoLOG) PER UNIT SC ×4 (09:21→21:58)
[2018-03-02] MEDS: LORATADINE 10 MG TAB PO (09:22)
[2018-03-02] MEDS: CLOPIDOGREL 75 MG TAB PO (09:22)
[2018-03-02] MEDS: OMEPRAZOLE 20 MG CAP PO (09:22)
[2018-03-02] MEDS: ENOXAPARIN 40 MG/0.4 ML SYRINGE (J1650) SC (09:22)
[2018-03-02] MEDS: MULTIVITAMINS/MINERALS THERAP 1 TAB PO (09:22)
[2018-03-02] MEDS: ATORVASTATIN 20 MG TAB PO (09:22)
[2018-03-02] MEDS: ASPIRIN 81 MG ENTERIC TAB PO (09:22)
[2018-03-02] MEDS: LOSARTAN 50 MG TAB PO (09:23)
[2018-03-02] MEDS: CARVedilol 12.5 MG TAB PO ×2 (09:23→22:00)
[2018-03-02 11:56] LABS: BEDSIDE GLUCOSE 280 MG/DL (80-115)
[2018-03-02] MEDS: ACETAMINOPHEN TAB 650MG DOSE (2X325MG) PO (15:15)
[2018-03-02] MEDS: cefTRIAXone SOD 1 GM in D5W MINI-BAG PLUS 50 ML IV (18:22)
[2018-03-02 19:01] LABS: BEDSIDE GLUCOSE 243 MG/DL (80-115)
[2018-03-02 20:16] LABS: BEDSIDE GLUCOSE 298 MG/DL (80-115)
[2018-03-02] MEDS: LEVEMIR (INSULIN DETEMIR) 1 UNITS/0.01ML SC (21:59)
[2018-03-03] MEDS: ACETAMINOPHEN TAB 650MG DOSE (2X325MG) PO ×2 (00:12→21:00)
[2018-03-03] MEDS: SODIUM CHLORIDE 0.9% INJ 10 ML SYR IV ×3 (04:57→22:16)
[2018-03-03 05:23] LABS: BASO % 0.6 % (0.0-1.0); EOS # 0.2 10^3/uL (0.0-0.50); EOS % 3.8 % (0.0-3.0); HEMATOCRIT 28.2 % (36.0-47.0); HEMOGLOBIN 9.5 g/dl (12.0-15.5); IMMATURE GRANULOCYTE % 0.2 % (0-3.0); LYMPH # 1.5 10^3/uL (1.5-4.5); LYMPH % 31.1 % (24.0-44.0); MEAN CORPUSCULAR HEMOGLOBIN 30.9 pg (27.0-33.0); MEAN CORPUSCULAR HGB CONC 33.7 g/dl (32.0-36.5); MEAN CORPUSCULAR VOLUME 91.9 fl (80.0-96.0); MONO # 0.5 10^3/uL (0.0-0.8); MONO % 9.7 % (0.0-5.0); NEUTROPHILS # 2.6 10^3/uL (1.8-7.7); NEUTROPHILS % 54.6 % (36.0-66.0); PLATELET COUNT, AUTOMATED 214 10^3/uL (150-450); RED BLOOD COUNT 3.07 10^6/uL (4.00-5.40); RED CELL DISTRIBUTION WIDTH 12.9 % (11.5-14.5); WHITE BLOOD COUNT 4.8 10^3/uL (4.0-10.0)
[2018-03-03 05:38] LABS: ANION GAP 10 MEQ/L (8-16); BLOOD UREA NITROGEN 7 MG/DL (7-18); CALCIUM LEVEL 8.1 MG/DL (8.8-10.2); CARBON DIOXIDE LEVEL 24 MEQ/L (21-32); CHLORIDE LEVEL 105 MEQ/L (98-107); CPK CREATINE PHOSPHOKINASE 62 U/L (26-192); CREATININE FOR GFR 1.02 MG/DL (0.55-1.30); GLOMERULAR FILTRATION RATE 57.4 (>45); GLUCOSE, FASTING 264 MG/DL (70-100); MAGNESIUM LEVEL 1.7 MG/DL (1.8-2.4); POTASSIUM SERUM 3.7 MEQ/L (3.5-5.1); SODIUM LEVEL 139 MEQ/L (136-145)
[2018-03-03] MEDS: LACTOBACILLUS RHAMNOSUS POWDER PACKET(CULTURELLE) PO ×2 (08:57→20:59)
[2018-03-03] MEDS: HumaLOG INSULIN (NovoLOG) PER UNIT SC ×4 (08:57→20:57)
[2018-03-03] MEDS: MULTIVITAMINS/MINERALS THERAP 1 TAB PO (08:58)
[2018-03-03] MEDS: ATORVASTATIN 20 MG TAB PO (08:58)
[2018-03-03] MEDS: LOSARTAN 50 MG TAB PO (08:58)
[2018-03-03] MEDS: ASPIRIN 81 MG ENTERIC TAB PO (08:58)
[2018-03-03] MEDS: OMEPRAZOLE 20 MG CAP PO (08:58)
[2018-03-03] MEDS: CARVedilol 12.5 MG TAB PO ×2 (08:58→20:57)
[2018-03-03] MEDS: CLOPIDOGREL 75 MG TAB PO (08:58)
[2018-03-03] MEDS: LORATADINE 10 MG TAB PO (08:58)
[2018-03-03] MEDS: ENOXAPARIN 40 MG/0.4 ML SYRINGE (J1650) SC (08:59)
[2018-03-03 11:39] LABS: BEDSIDE GLUCOSE 288 MG/DL (80-115)
[2018-03-03 17:07] LABS: BEDSIDE GLUCOSE 221 MG/DL (80-115)
[2018-03-03 20:43] LABS: BEDSIDE GLUCOSE 253 MG/DL (80-115)
[2018-03-03] MEDS: LEVEMIR (INSULIN DETEMIR) 1 UNITS/0.01ML SC (20:58)
[2018-03-04] MEDS: SODIUM CHLORIDE 0.9% INJ 10 ML SYR IV ×3 (05:17→21:25)
[2018-03-04 05:35] LABS: BASO % 0.6 % (0.0-1.0); EOS # 0.2 10^3/uL (0.0-0.50); EOS % 3.5 % (0.0-3.0); HEMATOCRIT 29.2 % (36.0-47.0); HEMOGLOBIN 9.8 g/dl (12.0-15.5); IMMATURE GRANULOCYTE % 0.4 % (0-3.0); LYMPH # 1.6 10^3/uL (1.5-4.5); LYMPH % 29.2 % (24.0-44.0); MEAN CORPUSCULAR HEMOGLOBIN 30.9 pg (27.0-33.0); MEAN CORPUSCULAR HGB CONC 33.6 g/dl (32.0-36.5); MEAN CORPUSCULAR VOLUME 92.1 fl (80.0-96.0); MONO # 0.5 10^3/uL (0.0-0.8); MONO % 8.9 % (0.0-5.0); NEUTROPHILS # 3.1 10^3/uL (1.8-7.7); NEUTROPHILS % 57.4 % (36.0-66.0); PLATELET COUNT, AUTOMATED 239 10^3/uL (150-450); RED BLOOD COUNT 3.17 10^6/uL (4.00-5.40); RED CELL DISTRIBUTION WIDTH 12.9 % (11.5-14.5); WHITE BLOOD COUNT 5.4 10^3/uL (4.0-10.0)
[2018-03-04 05:54] LABS: ANION GAP 8 MEQ/L (8-16); BLOOD UREA NITROGEN 7 MG/DL (7-18); CALCIUM LEVEL 8.4 MG/DL (8.8-10.2); CARBON DIOXIDE LEVEL 26 MEQ/L (21-32); CHLORIDE LEVEL 106 MEQ/L (98-107); CPK CREATINE PHOSPHOKINASE 55 U/L (26-192); CREATININE FOR GFR 1.01 MG/DL (0.55-1.30); GLUCOSE, FASTING 180 MG/DL (70-100); MAGNESIUM LEVEL 1.4 MG/DL (1.8-2.4); POTASSIUM SERUM 3.8 MEQ/L (3.5-5.1); SODIUM LEVEL 140 MEQ/L (136-145)
[2018-03-04] MEDS: LOSARTAN 50 MG TAB PO (08:18)
[2018-03-04] MEDS: OMEPRAZOLE 20 MG CAP PO (08:18)
[2018-03-04] MEDS: LACTOBACILLUS RHAMNOSUS POWDER PACKET(CULTURELLE) PO ×2 (08:18→20:40)
[2018-03-04] MEDS: ATORVASTATIN 20 MG TAB PO (08:18)
[2018-03-04] MEDS: MULTIVITAMINS/MINERALS THERAP 1 TAB PO (08:19)
[2018-03-04] MEDS: HumaLOG INSULIN (NovoLOG) PER UNIT SC ×4 (08:19→20:39)
[2018-03-04] MEDS: CLOPIDOGREL 75 MG TAB PO (08:19)
[2018-03-04] MEDS: CARVedilol 12.5 MG TAB PO ×2 (08:19→20:40)
[2018-03-04] MEDS: ASPIRIN 81 MG ENTERIC TAB PO (08:19)
[2018-03-04] MEDS: LORATADINE 10 MG TAB PO (08:19)
[2018-03-04] MEDS: ENOXAPARIN 40 MG/0.4 ML SYRINGE (J1650) SC (08:20)
[2018-03-04 11:59] LABS: BEDSIDE GLUCOSE 188 MG/DL (80-115)
[2018-03-04] MEDS: ACETAMINOPHEN TAB 650MG DOSE (2X325MG) PO ×2 (15:08→21:26)
[2018-03-04 16:27] LABS: BEDSIDE GLUCOSE 231 MG/DL (80-115)
[2018-03-04 20:17] LABS: BEDSIDE GLUCOSE 269 MG/DL (80-115)
[2018-03-04] MEDS: LEVEMIR (INSULIN DETEMIR) 1 UNITS/0.01ML SC (20:40)
[2018-03-05] MEDS: SODIUM CHLORIDE 0.9% INJ 10 ML SYR IV (05:11)
[2018-03-05 05:19] LABS: HEMATOCRIT 28.1 % (36.0-47.0); HEMOGLOBIN 9.6 g/dl (12.0-15.5); MEAN CORPUSCULAR HEMOGLOBIN 31.1 pg (27.0-33.0); MEAN CORPUSCULAR HGB CONC 34.2 g/dl (32.0-36.5); MEAN CORPUSCULAR VOLUME 90.9 fl (80.0-96.0); PLATELET COUNT, AUTOMATED 246 10^3/uL (150-450); RED BLOOD COUNT 3.09 10^6/uL (4.00-5.40); RED CELL DISTRIBUTION WIDTH 13.1 % (11.5-14.5); WHITE BLOOD COUNT 6.3 10^3/uL (4.0-10.0)
[2018-03-05 05:46] LABS: ANION GAP 8 MEQ/L (8-16); BLOOD UREA NITROGEN 9 MG/DL (7-18); CALCIUM LEVEL 8.3 MG/DL (8.8-10.2); CARBON DIOXIDE LEVEL 26 MEQ/L (21-32); CHLORIDE LEVEL 106 MEQ/L (98-107); CPK CREATINE PHOSPHOKINASE 66 U/L (26-192); CREATININE FOR GFR 1.02 MG/DL (0.55-1.30); GLOMERULAR FILTRATION RATE 57.4 (>45); GLUCOSE, FASTING 192 MG/DL (70-100); MAGNESIUM LEVEL 1.4 MG/DL (1.8-2.4); POTASSIUM SERUM 3.9 MEQ/L (3.5-5.1); SODIUM LEVEL 140 MEQ/L (136-145)
[2018-03-05] MEDS: MAG SULF 1GM/100ML (MAG RUN) 1 GM in APPROPRIATE DILUENT 1 EA IV ×2 (08:39→10:00)
[2018-03-05] MEDS: HumaLOG INSULIN (NovoLOG) PER UNIT SC ×2 (08:42→12:34)
[2018-03-05] MEDS: MULTIVITAMINS/MINERALS THERAP 1 TAB PO (08:42)
[2018-03-05] MEDS: ATORVASTATIN 20 MG TAB PO (08:43)
[2018-03-05] MEDS: ASPIRIN 81 MG ENTERIC TAB PO (08:43)
[2018-03-05] MEDS: LACTOBACILLUS RHAMNOSUS POWDER PACKET(CULTURELLE) PO (08:46)
[2018-03-05] MEDS: OMEPRAZOLE 20 MG CAP PO (08:46)
[2018-03-05] MEDS: CARVedilol 12.5 MG TAB PO (08:46)
[2018-03-05] MEDS: LOSARTAN 50 MG TAB PO (08:46)
[2018-03-05] MEDS: CLOPIDOGREL 75 MG TAB PO (08:46)
[2018-03-05] MEDS: ENOXAPARIN 40 MG/0.4 ML SYRINGE (J1650) SC (08:46)
[2018-03-05] MEDS: LORATADINE 10 MG TAB PO (08:47)
[2018-03-05] MEDS: ACETAMINOPHEN TAB 650MG DOSE (2X325MG) PO (08:54)
[2018-03-05 11:55] LABS: BEDSIDE GLUCOSE 181 MG/DL (80-115)
== END 2018-03-05 13:34 | disposition home or self-care (01) | DRG 71 ==
LOC: M ED INP 14:21 → M MSPAV 23:44 → M ED 14:20
DX: G93.41 Metabolic encephalopathy (principal); Z68.42 Body mass index [BMI] 45.0-49.9, adult; N39.0 Urinary tract infection, site not specified; I50.9 Heart failure, unspecified; K21.9 Gastro-esophageal reflux disease without esophagitis; E11.9 Type 2 diabetes mellitus without complications; E66.01 Morbid (severe) obesity due to excess calories; M54.5 Low back pain; I25.10 Atherosclerotic heart disease of native coronary artery without angina pectoris; E86.0 Dehydration; Z95.2 Presence of prosthetic heart valve; Z79.4 Long term (current) use of insulin; Z79.899 Other long term (current) drug therapy; Z86.19 Personal history of other infectious and parasitic diseases; Z79.82 Long term (current) use of aspirin; Z88.2 Allergy status to sulfonamides; Z91.040 Latex allergy status; Z91.011 Allergy to milk products

== ENCOUNTER 2018-03-19 09:35 | Inpatient (IN) | payer MEDICARE, MEDICAID ==
[2018-03-19 12:26] LABS: BEDSIDE GLUCOSE 578 MG/DL (80-115)
[2018-03-19 13:10] LABS: ABG BASE EXCESS -0.4 (-2.0-2.0); ABG HCO3 23.2 MEQ/L (22.0-26.0); ABG O2 SATURATION 96.3 % (95.0-99.0); ABG PARTIAL PRESSURE CO2 34.6 mmHg (35.0-45.0); ABG PARTIAL PRESSURE O2 81.7 mmHg (75.0-100.0); ABG STANDARD HCO3 24.1 MEQ/L (22.0-26.0); ABG TOTAL CO2 24.3 MEQ/L (23.0-31.0); ABG pH (ARTERIAL) 7.445 UNITS (7.350-7.450)
[2018-03-19 13:20] LABS: BASO % 0.4 % (0.0-1.0); EOS # 0.1 10^3/uL (0.0-0.50); EOS % 1.3 % (0.0-3.0); HEMATOCRIT 32.2 % (36.0-47.0); HEMOGLOBIN 11.4 g/dl (12.0-15.5); IMMATURE GRANULOCYTE % 0.3 % (0-3.0); LYMPH # 1.7 10^3/uL (1.5-4.5); LYMPH % 24.2 % (24.0-44.0); MEAN CORPUSCULAR HEMOGLOBIN 31.3 pg (27.0-33.0); MEAN CORPUSCULAR HGB CONC 35.4 g/dl (32.0-36.5); MEAN CORPUSCULAR VOLUME 88.5 fl (80.0-96.0); MONO # 0.6 10^3/uL (0.0-0.8); MONO % 7.9 % (0.0-5.0); NEUTROPHILS # 4.7 10^3/uL (1.8-7.7); NEUTROPHILS % 65.9 % (36.0-66.0); PLATELET COUNT, AUTOMATED 297 10^3/uL (150-450); RED BLOOD COUNT 3.64 10^6/uL (4.00-5.40); RED CELL DISTRIBUTION WIDTH 13.2 % (11.5-14.5); WHITE BLOOD COUNT 7.1 10^3/uL (4.0-10.0)
[2018-03-19 14:02] LABS: ANION GAP 11 MEQ/L (8-16); BLOOD UREA NITROGEN 22 MG/DL (7-18); CALCIUM LEVEL 9.2 MG/DL (8.8-10.2); CARBON DIOXIDE LEVEL 26 MEQ/L (21-32); CHLORIDE LEVEL 94 MEQ/L (98-107); CPK CREATINE PHOSPHOKINASE 107 U/L (26-192); CREATININE FOR GFR 1.79 MG/DL (0.55-1.30); MAGNESIUM LEVEL 1.5 MG/DL (1.8-2.4); MB/CK RELATIVE INDEX 2.34 (< OR =4); POTASSIUM SERUM 3.3 MEQ/L (3.5-5.1); SODIUM LEVEL 131 MEQ/L (136-145); THYROID STIMULATING HORMONE 0.575 uIU/ML (0.358-3.740); TROPONIN I 0.03 NG/ML (< 0.10)
[2018-03-19 14:05] LABS: GLUCOSE, FASTING 572 MG/DL (70-100)
[2018-03-19] MEDS: MAG SULF 1GM/100ML (MAG RUN) 1 GM in APPROPRIATE DILUENT 1 EA IV (15:37)
[2018-03-19] MEDS: POTASSIUM CHLORIDE 10 MEQ SR TABLET PO (15:37)
[2018-03-19 18:32] LABS: BEDSIDE GLUCOSE 445 MG/DL (80-115)
[2018-03-19] MEDS ORDERED: DEXTROSE 50% 50 ML SYRINGE IV (18:45)
[2018-03-19] MEDS ORDERED: GLUCOSE 4 GM CHEW TABLET PO (18:45)
[2018-03-19] MEDS ORDERED: GLUCAGON FOR INJ 1 MG VIAL (J1610) SC (18:45)
[2018-03-19] MEDS ORDERED: tiZANidine 4 MG TAB PO (19:15)
[2018-03-19] MEDS: NS 500 ML IV (19:30)
[2018-03-19 20:02] LABS: BEDSIDE GLUCOSE 460 MG/DL (80-115)
[2018-03-19] MEDS: LEVEMIR (INSULIN DETEMIR) 1 UNITS/0.01ML SC (20:07)
[2018-03-19] MEDS: HumaLOG INSULIN (NovoLOG) PER UNIT SC (20:08)
[2018-03-19] MEDS: CARVedilol 12.5 MG TAB PO (20:09)
[2018-03-19] MEDS: oxyBUTYnin 5 MG TAB PO (21:00)
[2018-03-19 21:04] LABS: ESTIMATED AVERAGE GLUCOSE 269 MG/DL (60-110)
[2018-03-19] MEDS: hydrALAZINE INJ 20 MG/ML VIAL IV (22:00)
[2018-03-19 22:04] LABS: ANION GAP 12 MEQ/L (8-16); BLOOD UREA NITROGEN 18 MG/DL (7-18); CALCIUM LEVEL 8.7 MG/DL (8.8-10.2); CARBON DIOXIDE LEVEL 24 MEQ/L (21-32); CHLORIDE LEVEL 100 MEQ/L (98-107); CPK CREATINE PHOSPHOKINASE 97 U/L (26-192); GLOMERULAR FILTRATION RATE 34.1 (>45); GLUCOSE, FASTING 365 MG/DL (70-100); MAGNESIUM LEVEL 1.6 MG/DL (1.8-2.4); MB/CK RELATIVE INDEX 2.37 (< OR =4); POTASSIUM SERUM 2.7 MEQ/L (3.5-5.1); SODIUM LEVEL 136 MEQ/L (136-145); TROPONIN I 0.03 NG/ML (< 0.10)
[2018-03-19] MEDS: SENOKOT S TAB PO (22:13)
[2018-03-19] MEDS: GABAPENTIN 300 MG CAP PO (22:13)
[2018-03-19] MEDS: HEPARIN SOD (PORCINE) 5000 UNITS/ML VIAL SC (22:14)
[2018-03-20 02:49] LABS: BEDSIDE GLUCOSE 366 MG/DL (80-115)
[2018-03-20] MEDS: POTASSIUM CHLORIDE 10 MEQ SR TABLET PO (03:04)
[2018-03-20] MEDS: hydrALAZINE INJ 20 MG/ML VIAL IV (04:00)
[2018-03-20 06:42] LABS: KETONE, URINE AUTO RFX NEGATIVE (NEGATIVE); LEUKOCYTE ESTERASE UR AUTO RFX 3+ (NEGATIVE); MUCUS, URINE RFX SMALL (NEGATIVE); NITRITE, URINE AUTO RFX POSITIVE (NEGATIVE); RBC, URINE AUTO RFX TNTC /HPF (0-3); SPECIFIC GRAVITY UR AUTO RFX 1.013 (1.002-1.035); SQUAM EPITHELIAL CELL UR AURFX 0 /HPF (0-6); WBC, URINE AUTO RFX TNTC /HPF (0-3); YEAST LIKE CELL URINE AUTO RFX MODERATE
[2018-03-20 07:03] LABS: CHLORIDE,RANDOM URINE 17 MEQ/L; POTASSIUM RANDOM URINE 14.7 MEQ/L; SODIUM,RANDOM URINE 36 MEQ/L; TOTAL PROTEIN,RANDOM URINE 70.9 MG/DL (0.0-12.0)
[2018-03-20 08:21] LABS: OSMOLALITY URINE 419 MOSM/KG (500-800)
[2018-03-20 08:34] LABS: HEMOGLOBIN 10.7 g/dl (12.0-15.5); MEAN CORPUSCULAR HEMOGLOBIN 30.7 pg (27.0-33.0); MEAN CORPUSCULAR HGB CONC 34.5 g/dl (32.0-36.5); MEAN CORPUSCULAR VOLUME 89.1 fl (80.0-96.0); PLATELET COUNT, AUTOMATED 264 10^3/uL (150-450); RED BLOOD COUNT 3.48 10^6/uL (4.00-5.40); RED CELL DISTRIBUTION WIDTH 13.3 % (11.5-14.5); WHITE BLOOD COUNT 6.9 10^3/uL (4.0-10.0)
[2018-03-20] MEDS ORDERED: OMEPRAZOLE 20 MG CAP PO (09:00)
[2018-03-20 09:15] LABS: ALBUMIN 2.6 GM/DL (3.2-5.2); ANION GAP 10 MEQ/L (8-16); BLOOD UREA NITROGEN 19 MG/DL (7-18); CALCIUM LEVEL 8.9 MG/DL (8.8-10.2); CARBON DIOXIDE LEVEL 24 MEQ/L (21-32); CHLORIDE LEVEL 103 MEQ/L (98-107); CREATININE FOR GFR 1.57 MG/DL (0.55-1.30); GLOMERULAR FILTRATION RATE 34.9 (>45); GLUCOSE, FASTING 271 MG/DL (70-100); MAGNESIUM LEVEL 1.7 MG/DL (1.8-2.4); PHOSPHORUS LEVEL 3.3 MG/DL (2.5-4.9); POTASSIUM SERUM 3.6 MEQ/L (3.5-5.1); SODIUM LEVEL 137 MEQ/L (136-145)
[2018-03-20 09:24] LABS: ALBUMIN 2.7 GM/DL (3.2-5.2); ALBUMIN/GLOBULIN RATIO 0.77 (1.00-1.93); ALKALINE PHOSPHATASE 131 U/L (45-117); ALT/SGPT 20 U/L (12-78); ANION GAP 9 MEQ/L (8-16); AST/SGOT 14 U/L (7-37); BILIRUBIN,TOTAL 0.4 MG/DL (0.2-1.0); BLOOD UREA NITROGEN 19 MG/DL (7-18); CALCIUM LEVEL 8.9 MG/DL (8.8-10.2); CARBON DIOXIDE LEVEL 24 MEQ/L (21-32); CHLORIDE LEVEL 104 MEQ/L (98-107); CREATININE FOR GFR 1.54 MG/DL (0.55-1.30); GLOMERULAR FILTRATION RATE 35.7 (>45); GLUCOSE, FASTING 268 MG/DL (70-100); POTASSIUM SERUM 3.6 MEQ/L (3.5-5.1); SODIUM LEVEL 137 MEQ/L (136-145); TOTAL PROTEIN 6.2 GM/DL (6.4-8.2)
[2018-03-20] MEDS: HEPARIN SOD (PORCINE) 5000 UNITS/ML VIAL SC ×2 (09:49→21:53)
[2018-03-20] MEDS: KCL 40MEQ in NS 1000ML 1,000 ML IV ×2 (09:49→21:55)
[2018-03-20] MEDS: ceFAZolin SOD 1 GM in D5W MINI-BAG PLUS 50 ML IV ×2 (09:49→21:54)
[2018-03-20] MEDS: HumaLOG INSULIN (NovoLOG) PER UNIT SC ×4 (09:50→21:53)
[2018-03-20] MEDS: ATORVASTATIN 20 MG TAB PO (09:50)
[2018-03-20] MEDS: LACTOBACILLUS ACIDOPHILUS CAP (BACID) PO ×3 (09:50→16:55)
[2018-03-20] MEDS: MULTIVITAMINS/MINERALS THERAP 1 TAB PO (09:51)
[2018-03-20] MEDS: CARVedilol 12.5 MG TAB PO ×2 (09:51→21:54)
[2018-03-20] MEDS: CLOPIDOGREL 75 MG TAB PO (09:51)
[2018-03-20] MEDS: GABAPENTIN 300 MG CAP PO ×2 (09:51→21:54)
[2018-03-20] MEDS: LORATADINE 10 MG TAB PO (09:51)
[2018-03-20] MEDS: SENOKOT S TAB PO ×2 (09:51→21:00)
[2018-03-20] MEDS: oxyBUTYnin 5 MG TAB PO ×3 (09:51→21:53)
[2018-03-20] MEDS: ASPIRIN 81 MG ENTERIC TAB PO (09:58)
[2018-03-20 12:16] LABS: BEDSIDE GLUCOSE 298 MG/DL (80-115)
[2018-03-20] MEDS: traMADol 50 MG TAB PO (16:39)
[2018-03-20 16:51] LABS: BEDSIDE GLUCOSE 232 MG/DL (80-115)
[2018-03-20] MEDS: INFLUENZA VIRUS VACCINE HIGH DOSE 0.5 ML SYRINGE (90662) IM (18:06)
[2018-03-20] MEDS: ONDANSETRON 4MG/2ML VIAL (J2405) IV (18:40)
[2018-03-20 21:03] LABS: BEDSIDE GLUCOSE 253 MG/DL (80-115)
[2018-03-20] MEDS: LEVEMIR (INSULIN DETEMIR) 1 UNITS/0.01ML SC (21:52)
[2018-03-21] MEDS: KCL 40MEQ in NS 1000ML 1,000 ML IV ×2 (01:25→09:00)
[2018-03-21 05:44] LABS: HEMATOCRIT 34.4 % (36.0-47.0); HEMOGLOBIN 11.3 g/dl (12.0-15.5); MEAN CORPUSCULAR HEMOGLOBIN 30.8 pg (27.0-33.0); MEAN CORPUSCULAR HGB CONC 32.8 g/dl (32.0-36.5); MEAN CORPUSCULAR VOLUME 93.7 fl (80.0-96.0); PLATELET COUNT, AUTOMATED 238 10^3/uL (150-450); RED BLOOD COUNT 3.67 10^6/uL (4.00-5.40); RED CELL DISTRIBUTION WIDTH 13.7 % (11.5-14.5); WHITE BLOOD COUNT 6.5 10^3/uL (4.0-10.0)
[2018-03-21 06:16] LABS: ALBUMIN 2.3 GM/DL (3.2-5.2); ANION GAP 8 MEQ/L (8-16); BLOOD UREA NITROGEN 18 MG/DL (7-18); CALCIUM LEVEL 8.8 MG/DL (8.8-10.2); CARBON DIOXIDE LEVEL 20 MEQ/L (21-32); CHLORIDE LEVEL 108 MEQ/L (98-107); CREATININE FOR GFR 1.37 MG/DL (0.55-1.30); GLOMERULAR FILTRATION RATE 40.8 (>45); GLUCOSE, FASTING 251 MG/DL (70-100); MAGNESIUM LEVEL 1.5 MG/DL (1.8-2.4); PHOSPHORUS LEVEL 2.6 MG/DL (2.5-4.9); POTASSIUM SERUM 4.2 MEQ/L (3.5-5.1); SODIUM LEVEL 136 MEQ/L (136-145)
[2018-03-21] MEDS: MAG SULF 1GM/100ML (MAG RUN) 1 GM in APPROPRIATE DILUENT 1 EA IV (06:44)
[2018-03-21] MEDS: oxyBUTYnin 5 MG TAB PO ×3 (08:53→22:06)
[2018-03-21] MEDS: LORATADINE 10 MG TAB PO (08:53)
[2018-03-21] MEDS: HumaLOG INSULIN (NovoLOG) PER UNIT SC ×4 (08:53→22:07)
[2018-03-21] MEDS: GABAPENTIN 300 MG CAP PO ×2 (08:53→22:05)
[2018-03-21] MEDS: ATORVASTATIN 20 MG TAB PO (08:53)
[2018-03-21] MEDS: CARVedilol 12.5 MG TAB PO ×2 (08:53→22:06)
[2018-03-21] MEDS: MULTIVITAMINS/MINERALS THERAP 1 TAB PO (08:53)
[2018-03-21] MEDS: SENOKOT S TAB PO ×2 (08:53→22:06)
[2018-03-21] MEDS: LACTOBACILLUS ACIDOPHILUS CAP (BACID) PO ×3 (08:54→17:06)
[2018-03-21] MEDS: CLOPIDOGREL 75 MG TAB PO (08:54)
[2018-03-21] MEDS: ASPIRIN 81 MG ENTERIC TAB PO (08:54)
[2018-03-21] MEDS: HEPARIN SOD (PORCINE) 5000 UNITS/ML VIAL SC ×2 (08:54→22:06)
[2018-03-21] MEDS: ceFAZolin SOD 1 GM in D5W MINI-BAG PLUS 50 ML IV (09:00)
[2018-03-21 11:46] LABS: BEDSIDE GLUCOSE 326 MG/DL (80-115)
[2018-03-21] MEDS: traMADol 50 MG TAB PO (15:52)
[2018-03-21] MEDS ORDERED: cefTRIAXone SOD 2 GM in D5W MINI-BAG PLUS 50 ML IV (17:00)
[2018-03-21 17:02] LABS: BEDSIDE GLUCOSE 297 MG/DL (80-115)
[2018-03-21 20:07] LABS: BEDSIDE GLUCOSE 261 MG/DL (80-115)
[2018-03-21] MEDS: MAGNESIUM OXIDE 400 MG TAB (MAG-OX) PO (22:05)
[2018-03-21] MEDS: LEVEMIR (INSULIN DETEMIR) 1 UNITS/0.01ML SC (22:07)
[2018-03-21] MEDS: CEFUROXIME 500 MG TAB PO (22:24)
[2018-03-22 05:59] LABS: HEMATOCRIT 30.2 % (36.0-47.0); HEMOGLOBIN 10.1 g/dl (12.0-15.5); MEAN CORPUSCULAR HEMOGLOBIN 30.8 pg (27.0-33.0); MEAN CORPUSCULAR HGB CONC 33.4 g/dl (32.0-36.5); MEAN CORPUSCULAR VOLUME 92.1 fl (80.0-96.0); PLATELET COUNT, AUTOMATED 224 10^3/uL (150-450); RED BLOOD COUNT 3.28 10^6/uL (4.00-5.40); RED CELL DISTRIBUTION WIDTH 13.6 % (11.5-14.5); WHITE BLOOD COUNT 5.3 10^3/uL (4.0-10.0)
[2018-03-22 06:32] LABS: ALBUMIN 2.4 GM/DL (3.2-5.2); ANION GAP 10 MEQ/L (8-16); BLOOD UREA NITROGEN 13 MG/DL (7-18); CALCIUM LEVEL 9.1 MG/DL (8.8-10.2); CARBON DIOXIDE LEVEL 22 MEQ/L (21-32); CHLORIDE LEVEL 105 MEQ/L (98-107); CREATININE FOR GFR 1.06 MG/DL (0.55-1.30); GLOMERULAR FILTRATION RATE 54.9 (>45); GLUCOSE, FASTING 256 MG/DL (70-100); MAGNESIUM LEVEL 1.7 MG/DL (1.8-2.4); PHOSPHORUS LEVEL 2.7 MG/DL (2.5-4.9); POTASSIUM SERUM 4.3 MEQ/L (3.5-5.1); SODIUM LEVEL 137 MEQ/L (136-145)
[2018-03-22] MEDS: HumaLOG INSULIN (NovoLOG) PER UNIT SC ×4 (08:22→22:18)
[2018-03-22] MEDS: CARVedilol 12.5 MG TAB PO ×2 (08:23→20:24)
[2018-03-22] MEDS: HEPARIN SOD (PORCINE) 5000 UNITS/ML VIAL SC ×2 (08:23→20:25)
[2018-03-22] MEDS: GABAPENTIN 300 MG CAP PO ×2 (08:24→20:24)
[2018-03-22] MEDS: LORATADINE 10 MG TAB PO (08:24)
[2018-03-22] MEDS: MAGNESIUM OXIDE 400 MG TAB (MAG-OX) PO ×2 (08:24→20:24)
[2018-03-22] MEDS: MULTIVITAMINS/MINERALS THERAP 1 TAB PO (08:24)
[2018-03-22] MEDS: CEFUROXIME 500 MG TAB PO ×2 (08:24→20:24)
[2018-03-22] MEDS: CLOPIDOGREL 75 MG TAB PO (08:24)
[2018-03-22] MEDS: oxyBUTYnin 5 MG TAB PO ×2 (08:24→16:00)
[2018-03-22] MEDS: ASPIRIN 81 MG ENTERIC TAB PO (08:24)
[2018-03-22] MEDS: LACTOBACILLUS ACIDOPHILUS CAP (BACID) PO ×3 (08:24→17:10)
[2018-03-22] MEDS: SENOKOT S TAB PO ×2 (08:25→20:23)
[2018-03-22] MEDS: ATORVASTATIN 20 MG TAB PO (08:25)
[2018-03-22 17:06] LABS: BEDSIDE GLUCOSE 224 MG/DL (80-115)
[2018-03-22] MEDS: traMADol 50 MG TAB PO (17:10)
[2018-03-22] MEDS: LEVEMIR (INSULIN DETEMIR) 1 UNITS/0.01ML SC (22:18)
[2018-03-23] MEDS: traMADol 50 MG TAB PO ×2 (02:21→10:09)
[2018-03-23 06:15] LABS: HEMATOCRIT 32.4 % (36.0-47.0); HEMOGLOBIN 10.6 g/dl (12.0-15.5); MEAN CORPUSCULAR HEMOGLOBIN 30.5 pg (27.0-33.0); MEAN CORPUSCULAR HGB CONC 32.7 g/dl (32.0-36.5); MEAN CORPUSCULAR VOLUME 93.1 fl (80.0-96.0); PLATELET COUNT, AUTOMATED 272 10^3/uL (150-450); RED BLOOD COUNT 3.48 10^6/uL (4.00-5.40); RED CELL DISTRIBUTION WIDTH 13.7 % (11.5-14.5); WHITE BLOOD COUNT 6.1 10^3/uL (4.0-10.0)
[2018-03-23 06:37] LABS: ALBUMIN 2.4 GM/DL (3.2-5.2); ANION GAP 9 MEQ/L (8-16); BLOOD UREA NITROGEN 10 MG/DL (7-18); CALCIUM LEVEL 9.2 MG/DL (8.8-10.2); CARBON DIOXIDE LEVEL 23 MEQ/L (21-32); CHLORIDE LEVEL 103 MEQ/L (98-107); GLOMERULAR FILTRATION RATE 58.7 (>45); GLUCOSE, FASTING 179 MG/DL (70-100); MAGNESIUM LEVEL 1.4 MG/DL (1.8-2.4); POTASSIUM SERUM 3.9 MEQ/L (3.5-5.1); SODIUM LEVEL 135 MEQ/L (136-145)
[2018-03-23 07:38] LABS: BEDSIDE GLUCOSE 138 MG/DL (80-115)
[2018-03-23 07:38] LABS: BEDSIDE GLUCOSE 293 MG/DL (80-115)
[2018-03-23] MEDS: HEPARIN SOD (PORCINE) 5000 UNITS/ML VIAL SC ×2 (10:01→21:26)
[2018-03-23] MEDS: LORATADINE 10 MG TAB PO (10:02)
[2018-03-23] MEDS: LACTOBACILLUS ACIDOPHILUS CAP (BACID) PO ×3 (10:02→18:21)
[2018-03-23] MEDS: CEFUROXIME 500 MG TAB PO ×2 (10:02→21:27)
[2018-03-23] MEDS: GABAPENTIN 300 MG CAP PO ×2 (10:02→21:27)
[2018-03-23] MEDS: MULTIVITAMINS/MINERALS THERAP 1 TAB PO (10:02)
[2018-03-23] MEDS: SENOKOT S TAB PO ×2 (10:02→21:27)
[2018-03-23] MEDS: ASPIRIN 81 MG ENTERIC TAB PO (10:02)
[2018-03-23] MEDS: ATORVASTATIN 20 MG TAB PO (10:02)
[2018-03-23] MEDS: HumaLOG INSULIN (NovoLOG) PER UNIT SC ×4 (10:02→21:31)
[2018-03-23] MEDS: MAGNESIUM OXIDE 400 MG TAB (MAG-OX) PO ×2 (10:02→21:27)
[2018-03-23] MEDS: CARVedilol 12.5 MG TAB PO ×2 (10:03→18:44)
[2018-03-23] MEDS: CLOPIDOGREL 75 MG TAB PO (10:03)
[2018-03-23 12:02] LABS: BEDSIDE GLUCOSE 129 MG/DL (80-115)
[2018-03-23] MEDS: TAMSULOSIN 0.4 MG CAP PO (15:42)
[2018-03-23] MEDS: FUROSEMIDE 20 MG TAB PO (15:42)
[2018-03-23] MEDS: LEVEMIR (INSULIN DETEMIR) 1 UNITS/0.01ML SC (21:28)
[2018-03-24 06:27] LABS: HEMATOCRIT 30.5 % (36.0-47.0); HEMOGLOBIN 10.4 g/dl (12.0-15.5); MEAN CORPUSCULAR HEMOGLOBIN 30.9 pg (27.0-33.0); MEAN CORPUSCULAR HGB CONC 34.1 g/dl (32.0-36.5); MEAN CORPUSCULAR VOLUME 90.5 fl (80.0-96.0); PLATELET COUNT, AUTOMATED 270 10^3/uL (150-450); RED BLOOD COUNT 3.37 10^6/uL (4.00-5.40); RED CELL DISTRIBUTION WIDTH 13.6 % (11.5-14.5); WHITE BLOOD COUNT 6.6 10^3/uL (4.0-10.0)
[2018-03-24 06:52] LABS: ALBUMIN 2.5 GM/DL (3.2-5.2); ANION GAP 8 MEQ/L (8-16); BLOOD UREA NITROGEN 9 MG/DL (7-18); CARBON DIOXIDE LEVEL 27 MEQ/L (21-32); CHLORIDE LEVEL 104 MEQ/L (98-107); CREATININE FOR GFR 0.93 MG/DL (0.55-1.30); GLOMERULAR FILTRATION RATE > 60.0 (>45); GLUCOSE, FASTING 141 MG/DL (70-100); MAGNESIUM LEVEL 1.7 MG/DL (1.8-2.4); PHOSPHORUS LEVEL 3.4 MG/DL (2.5-4.9); POTASSIUM SERUM 4.3 MEQ/L (3.5-5.1); SODIUM LEVEL 139 MEQ/L (136-145)
[2018-03-24] MEDS: LACTOBACILLUS ACIDOPHILUS CAP (BACID) PO ×3 (07:34→16:53)
[2018-03-24] MEDS: HumaLOG INSULIN (NovoLOG) PER UNIT SC ×4 (07:34→21:00)
[2018-03-24] MEDS: TAMSULOSIN 0.4 MG CAP PO (09:37)
[2018-03-24] MEDS: HEPARIN SOD (PORCINE) 5000 UNITS/ML VIAL SC ×2 (09:37→22:05)
[2018-03-24] MEDS: SENOKOT S TAB PO ×2 (09:38→22:05)
[2018-03-24] MEDS: CARVedilol 12.5 MG TAB PO ×2 (09:38→22:06)
[2018-03-24] MEDS: FUROSEMIDE 20 MG TAB PO (09:38)
[2018-03-24] MEDS: CLOPIDOGREL 75 MG TAB PO (09:38)
[2018-03-24] MEDS: MAGNESIUM OXIDE 400 MG TAB (MAG-OX) PO ×3 (09:38→22:10)
[2018-03-24] MEDS: ATORVASTATIN 20 MG TAB PO (09:38)
[2018-03-24] MEDS: CEFUROXIME 500 MG TAB PO ×2 (09:38→22:05)
[2018-03-24] MEDS: ASPIRIN 81 MG ENTERIC TAB PO (09:38)
[2018-03-24] MEDS: GABAPENTIN 300 MG CAP PO ×2 (09:38→22:05)
[2018-03-24] MEDS: MULTIVITAMINS/MINERALS THERAP 1 TAB PO (09:38)
[2018-03-24] MEDS: LORATADINE 10 MG TAB PO (09:38)
[2018-03-24] MEDS: MAG SULF 1GM/100ML (MAG RUN) 1 GM in APPROPRIATE DILUENT 1 EA IV ×2 (10:00→10:10)
[2018-03-24] MEDS: traMADol 50 MG TAB PO ×2 (11:39→23:10)
[2018-03-24] MEDS ORDERED: ACETAMINOPHEN TAB 650MG DOSE (2X325MG) PO (12:00)
[2018-03-24 15:22] LABS: URIC ACID 4.1 MG/DL (2.6-6.0)
[2018-03-24] MEDS: LEVEMIR (INSULIN DETEMIR) 1 UNITS/0.01ML SC (22:07)
[2018-03-25 06:17] LABS: HEMATOCRIT 30.5 % (36.0-47.0); HEMOGLOBIN 10.2 g/dl (12.0-15.5); MEAN CORPUSCULAR HEMOGLOBIN 30.5 pg (27.0-33.0); MEAN CORPUSCULAR HGB CONC 33.4 g/dl (32.0-36.5); MEAN CORPUSCULAR VOLUME 91.3 fl (80.0-96.0); PLATELET COUNT, AUTOMATED 296 10^3/uL (150-450); RED BLOOD COUNT 3.34 10^6/uL (4.00-5.40); RED CELL DISTRIBUTION WIDTH 13.7 % (11.5-14.5)
[2018-03-25 06:38] LABS: ALBUMIN 2.3 GM/DL (3.2-5.2); ANION GAP 8 MEQ/L (8-16); BLOOD UREA NITROGEN 11 MG/DL (7-18); CALCIUM LEVEL 8.6 MG/DL (8.8-10.2); CARBON DIOXIDE LEVEL 26 MEQ/L (21-32); CHLORIDE LEVEL 103 MEQ/L (98-107); CREATININE FOR GFR 0.94 MG/DL (0.55-1.30); GLOMERULAR FILTRATION RATE > 60.0 (>45); GLUCOSE, FASTING 148 MG/DL (70-100); MAGNESIUM LEVEL 1.9 MG/DL (1.8-2.4); PHOSPHORUS LEVEL 3.5 MG/DL (2.5-4.9); POTASSIUM SERUM 4.4 MEQ/L (3.5-5.1); SODIUM LEVEL 137 MEQ/L (136-145)
[2018-03-25 07:08] LABS: BEDSIDE GLUCOSE 240 MG/DL (80-115)
[2018-03-25 07:08] LABS: BEDSIDE GLUCOSE 100 MG/DL (80-115)
[2018-03-25 07:08] LABS: BEDSIDE GLUCOSE 83 MG/DL (80-115)
[2018-03-25 07:08] LABS: BEDSIDE GLUCOSE 272 MG/DL (80-115)
[2018-03-25 07:08] LABS: BEDSIDE GLUCOSE 217 MG/DL (80-115)
[2018-03-25] MEDS: CLOPIDOGREL 75 MG TAB PO (08:50)
[2018-03-25] MEDS: SENOKOT S TAB PO (08:50)
[2018-03-25] MEDS: MAGNESIUM OXIDE 400 MG TAB (MAG-OX) PO (08:50)
[2018-03-25] MEDS: HumaLOG INSULIN (NovoLOG) PER UNIT SC ×2 (08:50→11:31)
[2018-03-25] MEDS: MULTIVITAMINS/MINERALS THERAP 1 TAB PO (08:50)
[2018-03-25] MEDS: CARVedilol 12.5 MG TAB PO (08:51)
[2018-03-25] MEDS: CEFUROXIME 500 MG TAB PO (08:51)
[2018-03-25] MEDS: GABAPENTIN 300 MG CAP PO (08:51)
[2018-03-25] MEDS: LACTOBACILLUS ACIDOPHILUS CAP (BACID) PO ×2 (08:51→11:52)
[2018-03-25] MEDS: ASPIRIN 81 MG ENTERIC TAB PO (08:51)
[2018-03-25] MEDS: ATORVASTATIN 20 MG TAB PO (08:51)
[2018-03-25] MEDS: LORATADINE 10 MG TAB PO (08:51)
[2018-03-25] MEDS: HEPARIN SOD (PORCINE) 5000 UNITS/ML VIAL SC (08:52)
[2018-03-25] MEDS: FUROSEMIDE 20 MG TAB PO (08:52)
[2018-03-25] MEDS: TAMSULOSIN 0.4 MG CAP PO (08:52)
[2018-03-26 01:26] LABS: BEDSIDE GLUCOSE 85 MG/DL (80-115)
== END 2018-03-25 15:35 | disposition home health service (06) | DRG 194 ==
LOC: M MSPAV 03-22 08:47 → M PCU 03-20 16:09 → M ED 09:35 → M ED INP 19:25
PROVIDERS: Hospitalist
DX: J18.9 Pneumonia, unspecified organism (principal); N39.0 Urinary tract infection, site not specified; N17.9 Acute kidney failure, unspecified; E83.42 Hypomagnesemia; I11.0 Hypertensive heart disease with heart failure; B96.1 Klebsiella pneumoniae [K. pneumoniae] as the cause of diseases classified elsewhere; R33.9 Retention of urine, unspecified; E11.9 Type 2 diabetes mellitus without complications; Z79.899 Other long term (current) drug therapy; Z79.82 Long term (current) use of aspirin; Z79.4 Long term (current) use of insulin; I50.9 Heart failure, unspecified; K21.9 Gastro-esophageal reflux disease without esophagitis; E66.01 Morbid (severe) obesity due to excess calories; I25.10 Atherosclerotic heart disease of native coronary artery without angina pectoris; Z91.040 Latex allergy status; Z88.2 Allergy status to sulfonamides; Z91.011 Allergy to milk products; Z95.2 Presence of prosthetic heart valve; M54.5 Low back pain; E87.6 Hypokalemia; I16.0 Hypertensive urgency

== ENCOUNTER 2018-04-12 22:51 | Emergency (ER) | payer MEDICARE, MEDICAID ==
[2018-04-12 23:18] LABS: BEDSIDE GLUCOSE 546 MG/DL (80-115)
[2018-04-12 23:37] LABS: BASO % 0.4 % (0.0-1.0); EOS # 0.1 10^3/uL (0.0-0.50); EOS % 1.5 % (0.0-3.0); HEMOGLOBIN 11.7 g/dl (12.0-15.5); IMMATURE GRANULOCYTE % 0.4 % (0-3.0); LYMPH # 1.6 10^3/uL (1.5-4.5); LYMPH % 22.1 % (24.0-44.0); MEAN CORPUSCULAR HGB CONC 33.4 g/dl (32.0-36.5); MEAN CORPUSCULAR VOLUME 92.8 fl (80.0-96.0); MONO # 0.6 10^3/uL (0.0-0.8); MONO % 8.1 % (0.0-5.0); NEUTROPHILS # 4.8 10^3/uL (1.8-7.7); NEUTROPHILS % 67.5 % (36.0-66.0); PLATELET COUNT, AUTOMATED 321 10^3/uL (150-450); RED BLOOD COUNT 3.77 10^6/uL (4.00-5.40); RED CELL DISTRIBUTION WIDTH 13.3 % (11.5-14.5); WHITE BLOOD COUNT 7.2 10^3/uL (4.0-10.0)
[2018-04-12 23:45] LABS: INR 0.99; PROTHROMBIN TIME 13.2 SECONDS (12.1-14.4)
[2018-04-12 23:46] LABS: PARTIAL THROMBOPLASTIN TIME 34.2 SECONDS (25.4-37.6)
[2018-04-12 23:53] LABS: ANION GAP 11 MEQ/L (8-16); BLOOD UREA NITROGEN 12 MG/DL (7-18); CALCIUM LEVEL 8.5 MG/DL (8.8-10.2); CARBON DIOXIDE LEVEL 27 MEQ/L (21-32); CHLORIDE LEVEL 98 MEQ/L (98-107); CREATININE FOR GFR 1.13 MG/DL (0.55-1.30); GLUCOSE, FASTING 515 MG/DL (70-100); POTASSIUM SERUM 3.5 MEQ/L (3.5-5.1); SODIUM LEVEL 136 MEQ/L (136-145)
[2018-04-13] MEDS: HumuLIN R (REGULAR) INSULIN (NovoLIN R) **100U/ML** PER UNIT IV ×2 (00:25→01:45)
[2018-04-13 00:30] LABS: BEDSIDE GLUCOSE 551 MG/DL (80-115)
[2018-04-13 01:08] LABS: BEDSIDE GLUCOSE 419 MG/DL (80-115)
[2018-04-13] MEDS: hydrALAZINE INJ 20 MG/ML VIAL IV ×2 (01:35)
[2018-04-13 01:44] LABS: BEDSIDE GLUCOSE 325 MG/DL (80-115)
[2018-04-13] MEDS: DESMOPRESSIN ACETATE IV (01:45)
[2018-04-13] MEDS: NS IV (01:45)
[2018-04-13] MEDS ORDERED: MANNITOL 25% 12.5 GM/50 ML VIAL (J2150) As Ordered (02:03)
[2018-04-13] MEDS ORDERED: MANNITOL 25% 12.5 GM/50 ML VIAL (J2150) IV (02:15)
[2018-04-13] MEDS ORDERED: PROPOFOL 1,000 MG/100 ML VIAL As Ordered (02:23)
[2018-04-13] MEDS: PROPOFOL 1,000 MG in APPROPRIATE DILUENT 1 EA IV (02:30)
[2018-04-13] MEDS: MANNITOL 20% 100GM/500 ML BAG IV (02:45)
[2018-04-13 03:16] LABS: BEDSIDE GLUCOSE 386 MG/DL (80-115)
== END 2018-04-13 03:23 | disposition short-term general hospital (02) ==
LOC: M ED 04-13 03:23
DX: I62.00 Nontraumatic subdural hemorrhage, unspecified (principal); E11.65 Type 2 diabetes mellitus with hyperglycemia; I10 Essential (primary) hypertension; I25.10 Atherosclerotic heart disease of native coronary artery without angina pectoris; N28.9 Disorder of kidney and ureter, unspecified; K21.9 Gastro-esophageal reflux disease without esophagitis; E78.9 Disorder of lipoprotein metabolism, unspecified; Z86.718 Personal history of other venous thrombosis and embolism; E66.8 Other obesity; Z79.899 Other long term (current) drug therapy; Z79.82 Long term (current) use of aspirin; Z79.4 Long term (current) use of insulin; Z79.02 Long term (current) use of antithrombotics/antiplatelets; Z88.2 Allergy status to sulfonamides; Z91.011 Allergy to milk products; Z91.041 Radiographic dye allergy status
CPT/HCPCS: J2597